=== PATIENT | male | born 1960 | race Caucasian/White ===

== ENCOUNTER 2022-02-07 07:26 | Emergency (ER) | payer OTHER, SELFPAY ==
--- NOTE | ~2022-02-07 | XR_ITS ---
EXAMINATION: XR foot LT min 3V DATE: 02/07/2022 08:00 INDICATION: Left foot dorsal pain and laceration. Fall. TECHNIQUE: 4 views of left foot were obtained. COMPARISON: Left ankle radiographs 10/03/2008 FINDINGS: Bone alignment is normal. No fracture. There is mild osteoarthritis of first metatarsophala ngeal joint and some of the interphalangeal joints. There is chronic heterotopic ossification distal to medial malleolus. There are enthesophytes at the posterior and plantar aspects of calcaneal tubero sity. IMPRESSION: 1. Mild polyarticular osteoarthritis. Reviewed, dictated and finalized at location A.
--- NOTE | ~2022-02-07 | XR_ITS ---
EXAMINATION: XR chest 1V DATE: 02/07/2022 08:00 INDICATION: Chest pain. Fall. TECHNIQUE: A single frontal view of the chest was obtained. COMPARISON: None. FINDINGS: The chest demonstrates clear lungs without pneumonia, pleural effusion, or pneumothorax. Th e heart size is normal. IMPRESSION: 1. No acute cardiopulmonary disease. Reviewed, dictated and finalized at location A.
--- NOTE | ~2022-02-07 | CT_ITS ---
EXAMINATION: CT brain wo con DATE: 02/07/2022 07:55 INDICATION: Head injury. Multiple sclerosis. TECHNIQUE: Computed tomography (CT) of the head was performed without intravenous contrast. The mA wa s adjusted according to patient size. Iterative reconstruction technique was employed. The dose-lengt h product was 605.33 mGy-cm. COMPARISON: None FINDINGS: There is no intracranial hemorrhage, acute infarction, or abnormal intracranial mass lesion . The ventricles are normal in size. The orbits are normal. There is mild mucosal thickening in the p aranasal sinuses. There is a left mastoid effusion. IMPRESSION: 1. Normal brain. Reviewed, dictated and finalized at location A. IMPRESSION: 1. Normal brain.
[2022-02-07 07:26] VITALS: BP 166/79; PULSE 77; RESP 16; TEMP 37; O2SAT 95
[2022-02-07 07:35] LABS: Glucose Point of Care 211 mg/dl (65-105)
--- NOTE | 2022-02-07 07:43 | ED.FALL ---
HPI - Fall General Chief Complaint: Fall Stated Complaint: fall Source: RN notes reviewed History of Present Illness HPI Narrative: Patient presents to emergency department from home via EMS for fall. Patient states he has multiple sclerosis and is in a wheelchair at all times he states that approximate hour ago he fell out of his wheelchair states his wheelchair has not been reclining appropriately and he has been getting a new wheelchair and his fell states that he bumped the left side of his forehead when he fell but does not believe he lost consciousness he denies any other trauma or injury he denies any vision changes, chest pain, shortness of breath, dull pain nausea vomiting or any other symptoms. Patient does have an abrasion over his left knee and left foot which she states are from previous injuries there is a new abrasion over the posterior heel Related Data Allergies Allergy/AdvReac Type Severity Reaction Status Date / Time No Known Allergies Allergy Mild Verified 02/07/22 07:33 Review of Systems Review of Systems: Gen.: Denies fevers or chills Eyes: Denies eye pain or visual change ENT: Denies congestion Respiratory: Denies shortness of breath CV: Denies chest pain GI: Denies abdominal pain nausea, emesis Musculoskeletal: Denies back pain or muscle pain Neuro: Reports MS with chronic leg weakness Skin: Denies rash Except as documented, all other systems reviewed and negative [facility] Past Medical History Medical History (Updated 02/07/22 @ 10:00 by Damaso Love DO) Multiple sclerosis Family History Family History (Updated 10/05/10 @ 08:59 by DOCTOR UNKNOWN) Other Diabetes mellitus Hypertension Social History Social History Smoking status: Never smoker Alcohol intake: current Exam Narrative: APPEARANCE: No acute distress, nontoxic, resting in bed EYES: EOMI, PERRL HEENT: Normocephalic, area of swelling over the left superior forehead nares patent no facial tenderness Neck: Supple no tenderness palpation for range of motion RESPIRATORY: No respiratory distress Clear to auscultation bilaterally with no rhonchi wheezing or rales. CARDIOVASCULAR: Regular rate and rhythm without murmurs rubs or gallops. Bilateral dorsalis pedis pulses 2+ ABDOMINAL: Soft, nontender, nondistended, no rebound or guarding MUSCULOSKELETAl: Moves all extremities. No clubbing, cyanosis or edema. NEURO: Awake and alert x 4. Following commands, speech normal, weakness bilateral lower extremities SKIN:: Warm, dry. Superficial abrasion over left posterior heel no active bleeding PSYCHIATRIC: Normal affect/mood, Course Course Emergency Course: Patient states his wheelchair at home has been broken currently was being sent to be fixed then he does not have any way of getting around at home while case management visit with patient Patient came to see patient they have been in discussion with with facility fixing wheelchair at this time wheelchair is expected to be fixed by this afternoon and patient may be able to go back home Discussed with patient results of workup and diagnosis. Discussed need for follow-up with primary care, proper use of medication, and reasons to return to the emergency department. Patient understands and agrees to current treatment plan Vital Signs Vital signs: Vital Signs Temperature 98.6 F 02/07/22 07:26 Pulse Rate 77 02/07/22 07:26 Respiratory Rate 16 02/07/22 07:26 Blood Pressure 166/79 H 02/07/22 07:26 Pulse Oximetry 95 02/07/22 07:26 Temperature 98.6 F 02/07/22 07:26 Pulse Rate 77 02/07/22 07:26 Respiratory Rate 16 02/07/22 07:26 Blood Pressure 166/79 H 02/07/22 07:26 Pulse Oximetry 95 02/07/22 07:26 MDM - Fall Lab Data Labs: Lab Results 02/07/22 Range/Units 07:32 POC Capillary Glucose 211 H (65-105) mg/dl Imaging Data Radiologist's impression: ITS Impressions He
[2022-02-07 09:00] VITALS: BP 156/72; PULSE 78; RESP 20; O2SAT 97
[2022-02-07 10:55] VITALS: BP 148/72; PULSE 76; RESP 20; O2SAT 97
--- NOTE | 2022-02-07 11:10 | PCCCNOTE ---
Late Entry: Called down to ER at 0840 to meet with patient about wheelchair. Met with patient and spouse Caitlin at bedside. Patient states that recliner of power wheelchair is broken and this AM he has a spasm with his MS that sent him falling out of wheelchair. With his power wheelchair he is able to transfer for toileting, but he does sleep in his chair. Attends [facility] for re[facility]. They already had a scheduled appointment today at 0900 to get it fixed. Discussed plan B like short stay at nursing rehab facility if unable to get wheelchair fixed. Patient does not want to do that. Currently his brother is en route to [facility] to have it fixed. Called to [facility] at [phone] sw Beatrice and advised if urgent repair as patient is discharging from the ER and has to have it. Beatrice to get a hold of Kevin and will call back. Beatrice called patient's back and they are trying to figure out if they can fix it today and/or get him a loaner. Caitlin (patient's spouse) called me, [facility] have made some adjustments that will work for now and the brother is on the way back with the wheelchair in the wheelchair van. Advised to notify MD and Medical team.
== END 2022-02-07 10:55 | disposition home or self-care (01) ==
PROVIDERS: Emergency Provider Emergency Medicine; PCP Internal Medicine
DX: S09.90XA Unspecified injury of head, initial encounter (principal); S00.83XA Contusion of other part of head, initial encounter; S90.812A Abrasion, left foot, initial encounter; G35 Multiple sclerosis; W05.0XXA Fall from non-moving wheelchair, initial encounter
CPT/HCPCS: 70450; 71045; 73630; 82948; 99284

== ENCOUNTER 2022-11-11 12:55 | Inpatient (IN) | payer OTHER, SELFPAY ==
[2022-11-11] VITALS (27 sets, daily range): BP systolic 115–156; BP diastolic 52–80; PULSE 68–99; RESP 12–27; TEMP 36.6; O2SAT 94–100; BMI 45.9
--- NOTE | ~2022-11-11 | XR_ITS ---
XR lumbar spine 2-3V 11/11/2022 13:29 Indication: Recent fall. Back pain. Procedure: 3 views of the lumbar spine Comparison: No prior studies for comparison. Findings: There is disc narrowing at L5-S1. Vertebral body heights are maintained. Pedicles intact. N o acute fracture or traumatic malalignment. There is a radiodensity overlying the lower pelvis of unc ertain significance. This may lie external to the patient. Clinically correlate. Impression: 1: No acute abnormality of the lumbar spine. 2: Radiopaque foreign body overlying the lower pelvis. Correlate clinically to determine if this is o utside of the patient. Reviewed, dictated and finalized at location A. YARD OPERATOR Impression: 1: No acute abnormality of the lumbar spine. 2: Radiopaque foreign body overlying the lower pelvis. Correlate clinically to determine if this is outside of the patient.
--- NOTE | ~2022-11-11 | XR_ITS ---
EXAM: XR hip BI 2V w AP pelvis DATE: 11/11/2022 18:55 HISTORY: Posterior bilateral hip/back pain x4days after fall. . COMPARISON: None available. FINDINGS: An electronic device projects over the midline pelvis Normal mineralization. No fracture o r dislocation. No lytic or blastic lesion. Degenerative changes in the lumbar spine. Mild bilateral h ip osteoarthritis. No erosion or periosteal change. Soft tissues within normal limits. IMPRESSION: No acute osseous finding in the pelvis or bilateral hips. Reviewed, dictated and finalized at location K. ILE SUPERVISOR
--- NOTE | ~2022-11-11 | XR_ITS ---
XR chest 1V 11/11/2022 13:29 Indication: Back pain. Status post fall. Procedure: AP view of the chest Comparison: 02/07/2022 Findings: There is bibasilar atelectasis. Shallow inspiration. No focal pneumonia, edema, significant effusion or pneumothorax. Elevated right diaphragm. Impression: 1: Bibasilar atelectasis. Reviewed, dictated and finalized at location A. GER RN Impression: 1: Bibasilar atelectasis.
--- NOTE | ~2022-11-11 | CT_ITS ---
EXAMINATION: CT brain wo con DATE: 11/11/2022 18:57 INDICATION: Confusion . TECHNIQUE: Computed tomography (CT) of the head was performed without intravenous contrast. The mA wa s adjusted according to patient size. Iterative reconstruction technique was employed. The dose-lengt h product was 681.00 mGy-cm. COMPARISON: 02/07/2022. FINDINGS: No acute intracranial hemorrhage or extra-axial fluid collection. No hydrocephalus, mass, or herniation. No acute ischemic infarct. Unremarkable dural venous sinus attenuation. No acute osseous abnormality. Anterior and middle ethmoid air cell mucosal thickening, bilateral mastoid effusions, the remaining a erated spaces are clear. IMPRESSION: No acute intracranial process. Reviewed, dictated and finalized at location K. OBIOLOGY DIRECTOR
--- NOTE | 2022-11-11 12:00 | ECG_ITS ---
Measurements Intervals [place] Rate: 81 P: 67 AK: 185 QRS: 47 QRSD: 90 T: 31 QT: 363 QTc: 423 Interpretive Statements SINUS RHYTHM BASELINE ARTIFACT- I, II, III, AVR, AVL, AVF, V1-V6 NORMAL ECG NO PREVIOUS ECG AVAILABLE FOR COMPARISON Electronically Signed On 11-11-2022 15:12:15 WAGE CONCILIATOR by Arun Samson D.O.
--- NOTE | 2022-11-11 12:39 | ED.BACK ---
HPI - Back Pain/Injury General Chief Complaint: Back Pain/Injury Stated Complaint: back pain, glf 4 days ago, covid+ 2 days ago Source: patient Mode of arrival: EMS History of Present Illness HPI Narrative: Patient lives with his , monitors chair bound, over the last 2 weeks have trouble with the manage to get out wheelchair to bathroom and vice versa. Had a fall out of his motorized chair 4 days ago, had COVID symptoms of 4 days ago, and tested positive at that day. Patient came by ambulance complaining of lower back pain which could be related to the fall 4 days ago. Patient reported that he felt off the motor chair forward on his face. Did not seek medical attention at that time. Patient's also have COVID and unable to manage to take care of him. Related Data Allergies Allergy/AdvReac Type Severity Reaction Status Date / Time No Known Allergies Allergy Verified 11/11/22 13:28 Review of Systems Review of Systems: All systems reviewed & are unremarkable except as noted in HPI and below PMFSH Past Medical History Medical History (Updated 11/11/22 @ 15:02 by Hanh Buck MD) Chronic renal failure, stage 3 (moderate) DM2 (diabetes mellitus, type 2) HTN (hypertension), malignant Hyperlipidemia Multiple sclerosis Surgical History Surgical History (Updated 11/11/22 @ 14:21 by Anum Gardner NP) H/O wrist surgery Family History Family History (Updated 11/11/22 @ 14:24 by Anum Gardner NP) Mother Diabetes mellitus Father Cerebrovascular accident Social History Social History 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 Musculoskeletal: Diffuse pain across the lumbar area, no bruises,, no swelling, no rash. Patient have difficulty to roll over or sit up in bed without 4 assistant professor of geography Neurologic: Alert and oriented ?3, LINE CREWMAN is normal as tested, no gross motor deficit Course Course Emergency Course: Back pain high likely secondary to the fall 4 days ago. Got worse after COVID infection. Patient been chronically weak over the last 2 weeks, unable to manage to get off his motorized chair without assistant professor of geography, lives with his who had COVID and unable even to help her self. The requested to keep patient in the hospital because unable to manage to take care of him. Work-up today showed no significant finding to explain patient weakness except COVID infection. Reevaluation(s) Reevaluation #1: Patient is improving, feeling much better compared to on arrival to the emergency room. Date: 11/11/22 Time: 15:02 Vital Signs Vital signs: Vital Signs Temperature 36.6 C 11/11/22 12:33 Pulse Rate 99 11/11/22 12:33 Respiratory Rate 18 11/11/22 12:33 Blood Pressure 115/52 L 11/11/22 12:33 Pulse Oximetry 98 11/11/22 12:33 Oxygen Delivery Room Air 11/11/22 12:33 Temperature 36.6 C 11/11/22 12:33 Pulse Rate 99 11/11/22 12:33 Respiratory Rate 18 11/11/22 12:33 Blood Pressure 115/52 L 11/11/22 12:33 Pulse Oximetry 98 11/11/22 12:33 Oxygen Delivery Room Air 11/11/22 12:33 MDM - Back Pain/Injury Differential Diagnosi
[2022-11-11] MEDS: SODIUM CHLORIDE 0.9% IV 1,000 ML 999 ML IV CONT (13:53)
[2022-11-11 14:00] LABS: Basophils Percent Auto 0.3 % (0.2-1.2); Eosinophils Absolute Auto 0.2 K/mm3 (0-0.3); Eosinophils Percent Auto 2.2 % (0-4.4); Hematocrit 49.2 % (42.0-52.0); Hemoglobin 15.9 g/dL (14.0-18.0); Immature Granulocyte Absolute 0.03 K/mm3 (0.00-0.031); Immature Granulocyte Percent A 0.4 % (0-0.5); Lymphocytes Absolute Auto 1.51 K/mm3 (0.9-3.2); Mean Corpuscular HGB Conc 32.3 g/dl (32-36); Mean Corpuscular Hemoglobin 33.4 pg (26-34); Mean Corpuscular Volume 103.4 fl (80-100); Mean Platelet Volume 11.6 fl (7.4-10.4); Monocytes Absolute Auto 1.3 K/mm3 (0.1-0.6); Monocytes Percent Auto 19.1 % (2.6-8.5); Neutrophils Absolute Auto 3.8 K/mm3 (1.3-6.7); Platelet Count Result 216 k/mm3 (150-375); Red Blood Count 4.76 M/mm3 (4.6-6.20); Red Cell Distribution Width 14.6 % (11.5-14.5); White Blood Count 6.9 K/mm3 (4.5-10.0)
[2022-11-11 14:01] LABS: Add Urine Microscopic? YES; Appearance Urine Clear (Clear); Bilirubin Urine Negative (Negative); Blood Urine 1+ (Negative); Color Urine Yellow (Yellow); Glucose Urine UA 3+ mg/dL (Negative); Ketones Urine Trace mg/dL (Negative); Leukocyte Esterase Ur Negative LEU/UL (Negative); Nitrate Urine Negative (Negative); Protein Urine 2+ mg/dL (Negative); Specific Grav Ur >= 1.030 (1.001-1.035); Urobilinogen Urine 0.2 mg/dL (<2.0); pH Urine 5.5 (5.0-9.0)
[2022-11-11 14:11] LABS: Alanine Aminotransferase 35 U/L (6-50); Alkaline Phosphatase 119 U/L (38-126); Anion Gap 14 mmol/L (8-16); Aspartate Amino Transferase 43 U/L (17-59); Bilirubin,Total 0.4 mg/dL (0.2-1.3); Blood Urea Nitrogen 46 mg/dL (9-20); Calcium 8.7 mg/dL (8.4-10.2); Carbon Dioxide 17 mmol/L (22-30); Chloride 101 mmol/L (98-107); Estimated CRCL calculation 49 ml/min; Estimated Glomerular Filt Rate 36; Glucose 168 mg/dL (65-110); Potassium 4.8 mmol/L (3.4-5.0); Sodium 132 mmol/L (137-145)
[2022-11-11 14:11] LABS: Mucus Urine Rare /lpf; WBC Urine 0-3 /hpf
--- NOTE | 2022-11-11 14:18 | PM.IMHP ---
H&P: HPI History of Present Illness Date/Time: 11/11/22 14:18 Chief Complaint: Back pain Narrative: This is a 62-year-old male patient who has a history MS. He is mostly wheelchair-bound. His was recently diagnosed with COVID and the patient has been having difficulty over the last 2 weeks managing getting out of his wheelchair to the bathroom. His COVID symptoms started approximately 4 days ago. Patient tested positive for COVID 4 days ago. The patient is having severe weakness and discomfort to his knees and back. The patient fell 4 days ago out of his wheelchair. He fell out of his motorized scooter and fell face forward. He did not seek any medical attention at that time. His is not able to take care of him at this point due to COVID. His creatinine is 1.9. The patient stated he does have chronic renal failure stage 3. His blood sugar is 168 today. Patient is negative for influenza a and B but is positive for COVID. The patient was given IV fluids, IV Tylenol and Decadron. Lumbar spine was read as no acute abnormality of the lumbar spine. Radial plate foreign body over of lying the lower pelvis. Chest x-ray was read as bibasilar atelectasis. The patient is being admitted to observation status on the date of service of 11/11/2022. Review of Systems Review of Systems: See HPI All systems reviewed & are unremarkable except as noted in HPI and below Constitutional: Constitutional: Reports as per HPI and Reports no additional constitutional complaints Eyes: Eyes: Reports as per HPI and Reports no additional eye complaints ENT: Reports system reviewed and no additional complaints, except as documented and Reports Normal hearing present Cardiovascular: Cardiovascular: Reports no additional cardiovascular complaints Respiratory: Respiratory: Reports no additional respiratory complaints and Reports no additional respiratory complaints Gastrointestinal: Gastrointestinal: Reports as per HPI and Reports no additional gastrointestinal complaints Musculoskeletal: Musculoskeletal: Reports no additional musculoskeletal complaints Integumentary/Breasts: Skin/Breast: Reports system reviewed and no additional complaints, except as docu and Reports as per HPI Neurologic: Reports system reviewed and no additional complaints, except as documented, Reports as per HPI and Reports Normal hearing present Psychiatric: Psychiatric: Reports no additional psychiatric complaints and Reports as per HPI Endocrine: Endocrine: Reports no additional endocrine complaints Hematologic/Lymphatic: Hematologic/Lymphatic: Reports no additional hematologic/lymphatic complaints Allergic/Immunologic: Allergic/Immunologic: Reports no additional allergic/immunologic complaints PMFSH Past Medical History Medical History (Updated 11/11/22 @ 15:02 by Hanh Buck MD) Chronic renal failure, stage 3 (moderate) DM2 (diabetes mellitus, type 2) HTN (hypertension), malignant Hyperlipidemia Multiple sclerosis Surgical History Surgical History (Updated 11/11/22 @ 14:21 by Anum Gardner NP) H/O wrist surgery Family History Family History (Updated 11/11/22 @ 14:24 by Anum Gardner NP) Mother Diabetes mellitus Father Cerebrovascular accident Social History Social History (Updated 11/11/22 @ 18:29 by Anum Gardner NP) Social History: He is disabled and lives with his and has adult 2 children. 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 He does not use any alcohol or marijuana. His is the durable power deputy county attorney for healthcare. Code status full code Smoking status: Never smoker Meds Home Medications and Allergies Allergies Allergy/AdvReac Type Severity Reaction Status Date / Time No Known Allergies Allergy Verified 11/11/22 13:28 Vital Signs Vital Signs - 24 hr 11/11/22 12:33 Temperature 36.6 C Pulse Rate 99 Respiratory Rate 18 Blood Pressure 115/52 L Pulse Oximetry 98
[2022-11-11 14:46] LABS: Influenza A QL RT-PCR Negative (Negative); Influenza B QL RT-PCR Negative (Negative); SARS-CoV-2 RNA PCR Positive
[2022-11-11] MEDS: SODIUM CHLORIDE 0.9% IV 1,000 ML 150 ML IV CONT ×2 (15:52→23:46)
[2022-11-11 19:12] LABS: Hemoglobin A1C 8.1 % (<5.7)
--- NOTE | 2022-11-11 23:36 | PHAR ---
PHARMACY VERIFIED HOME MEDICATION: *HOME MED* Nirmatrelvir-Ritonavir [Paxlovid (Eua)] 150/100 MG PACK TAKE ONE OF EACH TABLET BY MOUTH EVERY 12 HOURS
[2022-11-11] MEDS: BACLOFEN 10 MG TABLET PO (23:46)
[2022-11-12 00:03] LABS: Glucose Point of Care 236 mg/dl (65-105)
[2022-11-12 03:56] VITALS: BP 166/64; PULSE 80; RESP 20; TEMP 36.3; O2SAT 96
[2022-11-12 05:49] LABS: Basophils Percent Auto 0.3 % (0.2-1.2); Hematocrit 44.6 % (42.0-52.0); Hemoglobin 14.6 g/dL (14.0-18.0); Immature Granulocyte Absolute 0.03 K/mm3 (0.00-0.031); Immature Granulocyte Percent A 0.8 % (0-0.5); Lymphocytes Absolute Auto 0.68 K/mm3 (0.9-3.2); Lymphocytes Percent Auto 17.2 % (18.3-44.2); Mean Corpuscular HGB Conc 32.7 g/dl (32-36); Mean Corpuscular Hemoglobin 32.9 pg (26-34); Mean Corpuscular Volume 100.5 fl (80-100); Mean Platelet Volume 10.6 fl (7.4-10.4); Monocytes Absolute Auto 0.2 K/mm3 (0.1-0.6); Monocytes Percent Auto 4.3 % (2.6-8.5); Neutrophils Absolute Auto 3.1 K/mm3 (1.3-6.7); Neutrophils Percent Auto 77.4 % (45.5-73.1); Platelet Count Result 191 k/mm3 (150-375); Red Blood Count 4.44 M/mm3 (4.6-6.20); Red Cell Distribution Width 13.8 % (11.5-14.5)
[2022-11-12 05:54] LABS: Lactic Acid Reflex 1.3 mmol/L (0.7-2.0)
[2022-11-12 05:57] LABS: Anion Gap 14 mmol/L (8-16); Blood Urea Nitrogen 47 mg/dL (9-20); Carbon Dioxide 13 mmol/L (22-30); Chloride 104 mmol/L (98-107); Estimated CRCL calculation 51 ml/min; Estimated Glomerular Filt Rate 39; Glucose 251 mg/dL (65-110); Magnesium 1.9 mg/dL (1.6-2.3); Sodium 131 mmol/L (137-145)
[2022-11-12] MEDS: SODIUM CHLORIDE 0.9% IV 1,000 ML 150 ML IV CONT (06:02)
[2022-11-12 08:37] LABS: Glucose Point of Care 269 mg/dl (65-105)
[2022-11-12 09:45] VITALS: O2SAT 92
[2022-11-12] MEDS: buPROPion HCL XL (24 HR) 150 MG TABCR 300 MG PO (10:00)
[2022-11-12] MEDS: BACLOFEN 10 MG TABLET PO ×3 (10:00→17:33)
[2022-11-12] MEDS: ATORVASTATIN 10 MG TABLET PO (10:00)
[2022-11-12] MEDS: CHLORTHALIDONE 25 MG TABLET PO (10:01)
[2022-11-12] MEDS: SODIUM BICARBONATE TAB 650 MG TABLET PO (10:01)
[2022-11-12] MEDS: INSULIN ASPART (*BKC) 100 UNITS/ML 9 UNITS SUB-Q ×3 (10:34→17:36)
[2022-11-12] MEDS: EMPAGLIFLOZIN 10 MG TABLET PO (10:34)
[2022-11-12] MEDS: INSULIN ASPART (*BKC) 100 UNITS/ML SUB-Q ×3 (10:34→17:34)
[2022-11-12 10:42] LABS: Glucose Point of Care 273 mg/dl (65-105)
--- NOTE | 2022-11-12 11:13 | PM.CNNEP ---
Assessment and Plan Assessment and plan (1) Stage 3b chronic kidney disease: Code(s): N18.32 - Chronic kidney disease, stage 3b Status: Chronic Assessment and Plan: seems to run around 1.8 - 2.1mg/dl in the last year use to follow with Dr. Mendez (in [place]) and now with Dr. Yee (in [place]) etiology due to HTN, diabetes, and vascular disease (2) Metabolic acidosis: Code(s): E87.20 - Acidosis, unspecified Status: Acute Assessment and Plan: was not an issue prior to admission from review of records triggered by COVID(?) agree with starting sodium bicarbonate to compensate follow trend of CO2 levels (3) COVID-19 virus infection: Code(s): U07.1 - COVID-19 Status: Acute Assessment and Plan: currently on room air receiving steroids would hold remdesivir given his CKD continue supportive therapy (4) Hypertension: Code(s): I10 - Essential (primary) hypertension Status: Chronic Assessment and Plan: reasonable control for now would consider adding YASMEEN/ARB but this was discontinued previously due to issues with hyperkalemia follow trend of hemodynamics (5) DM2 (diabetes mellitus, type 2): Code(s): E11.9 - Type 2 diabetes mellitus without complications Status: Chronic Assessment and Plan: follow accuchecks glycemic control Will continue to follow. History of Present Illness Reason for Consult Consult date: 11/12/22 Reason for consult: chronic renal failure and metabolic acidosis Chief Complaint Chief complaint: General Weakness,Unable to Ambulate,COVID infect History of Present Illness Narrative: The patient is a 62-year-old male with a past medical history as outlined below who presented to [facility] Emergency Room due to severe weakness. At baseline, the patient is mostly wheelchair bound secondary to his known history of multiple sclerosis. Apparently, his was recently diagnosed with COVID and he subsequently started having symptoms about 4 days prior to his presentation to the ER. He subsequently tested positive for COVID-19 as well. Since this diagnosis it would seem that his generalized weakness is more severe than baseline in conjunction with discomfort in his knees and back. He apparently had a fall out of his wheelchair/motorized scooter where apparently fell face forward but did not seek medical attention at that time. Given his ongoing and declining weakness he was brought to the ER for further assessment as his has been unable to take care of him given her own COVID symptoms. Workup and evaluation emergency room demonstrated the patient to be hemodynamically stable and routine blood tests were significant for his known history of chronic kidney disease. He once again tested positive for COVID-19 as well. Given the constellation of symptoms as noted above he was started on Decadron as well as IV fluids and Tylenol with subsequent admission to the hospital for further evaluation therapy. Renal consultation was requested due to his known history of chronic kidney disease. The patient used to follow with Dr. Brittnee Mendez in [facility] for management of his chronic kidney disease and recently transferred his care to Dr. Yee in [place], [place] as Dr. Mendez is in the process of retiring. He has known chronic kidney disease secondary to his hypertension, diabetes, and vascular disease with his baseline creatinine fluctuating anywhere from 1.8-2.1 mg/dL in the last year. There has been some progression of his kidney disease since he was first diagnosed with chronic kidney disease but he remains on maximal therapy to maintain stability in his renal function. Currently, at the time my visit, his main complaint is still that of weakness but he is not appear to be in acute distress. Review of Systems Review of Systems: As per HPI. [facility] Past Medical History Medical
--- NOTE | 2022-11-12 11:16 | PM.IMPN ---
Progress Note: A&P Assessment and Plan (1) Hyponatremia: Code(s): E87.1 - Hypo-osmolality and hyponatremia Status: Acute (2) COVID-19 virus infection: Code(s): U07.1 - COVID-19 Status: Acute (3) Chronic renal failure, stage 3 (moderate): Code(s): N18.30 - Chronic kidney disease, stage 3 unspecified Status: Acute (4) HTN (hypertension), malignant: Code(s): I10 - Essential (primary) hypertension Status: Acute (5) DM2 (diabetes mellitus, type 2): Code(s): E11.9 - Type 2 diabetes mellitus without complications Status: Acute (6) Multiple sclerosis: Code(s): G35 - Multiple sclerosis Status: Acute Plan 62 years old M with PMH of MS, wheel chair bound presented with back pain, was diagnosed with COVID 19 5 days ago. 1)Acute COVID 19 Infection: Not in any distress On RA c/o Cough, add mucinex c/w dexamethasone to complete 10 day course d/c IV fluids 2)multiple Sclerosis: Increased weakness, likely in setting of COVID 19 PT/OT Await Neurology input CT head unremarkable 3)CKD stage 3+ Hyponatremia: D/c IV fluids Seems to be fluid overloaded Nephrology consult Also has metabolic acidosis, add sodium bicarbonate 4)Diabetes mellitus: Hyperglycemia+ 2/2 dexamethasone BG check TID AC and HS c/w SS meal time,add bolus mealtime insulin as well 5)HTN: c/w Chlothalidone, Atenolol Add PRN IV hydralazine 6)Physical Deconditioning: PT/OT 7)DVT ppx:Heparin SQ 8)Code:Full 9)Dispo:pending improvement Time Spent With Patient Time with patient: 25 - 35 minutes Subjective Date/time seen: 11/12/22 11:16 Interval history: No resp concerns,c/o cough, on RA. no acute events overnight Patient seems to be depressed Review of Systems Constitutional: Constitutional: Reports no additional constitutional complaints Eyes: Eyes: Reports no additional eye complaints ENT: Reports system reviewed and no additional complaints, except as documented Cardiovascular: Cardiovascular: Reports no additional cardiovascular complaints Respiratory: Respiratory: Reports cough Gastrointestinal: Gastrointestinal: Reports no additional gastrointestinal complaints Psychiatric: Psychiatric: Reports depression Exam Const: General: no acute distress HENMT: Mouth: Yes moist mucous membranes Eyes: Sclera: sclerae normal Neck: Neck: supple Resp: Auscultation: diminished lung sounds Other: decreased breath sounds B/L, no added sounds heard Cardio: Rate: regular rate Rhythm: regular rhythm GI: GI Palp: Yes Soft to palpation Auscultation: normal bowel sounds Extrem: General: edema Psych: Mental Status: mental status grossly normal Objective Data Vital Signs Vital Signs: Vital Signs - 24 hr 11/11/22 12:33 11/11/22 20:51 11/11/22 14:09 Temperature 97.8 F Pulse Rate 99 78 87 Respiratory Rate 18 18 21 H Blood Pressure 115/52 L Pulse Oximetry 98 97 100 Oxygen Delivery Room Air 11/11/22 14:15 11/11/22 14:40 11/11/22 14:45 Temperature Pulse Rate 85 81 88 Respiratory Rate 18 16 15 Blood Pressure Pulse Oximetry Oxygen Delivery 11/11/22 15:06 11/11/22 15:15 11/11/22 15:35 Temperature Pulse Rate 90 90 86 Respiratory Rate 13 16 21 H Blood Pressure Pulse Oximetry Oxygen Delivery 11/11/22 15:45 11/11/22 16:11 11/11/22 16:15 Temperature Pulse Rate 85 79 73 Respiratory Rate 27 H 21 H 20 Blood Pressure Pulse Oximetry Oxygen Delivery 11/11/22 16:56 11/11/22 17:00 11/11/22 17:15 Temperature Pulse Rate 69 74 91 Respiratory Rate 23 H 22 H 19 Blood Pressure Pulse Oximetry Oxygen Delivery 11/11/22 17:30 11/11/22 17:46 11/11/22 18:00 Temperature Pulse Rate 83 68 78 Respiratory Rate 22 H 14 Blood Pressure Pulse Oximetry Oxygen Delivery 11/11/22 18:37 11/11/22 18:45 11/11/22 19:02 Temperature Pulse Rate 82 78 85 Respiratory Rate 15
--- NOTE | 2022-11-12 11:48 | WPDNEURCNPN ---
Assessment and Plan Assessment and plan (1) COVID-19 virus infection: Code(s): U07.1 - COVID-19 Status: Acute (2) Chronic renal failure, stage 3 (moderate): Code(s): N18.30 - Chronic kidney disease, stage 3 unspecified Status: Acute (3) DM2 (diabetes mellitus, type 2): Code(s): E11.9 - Type 2 diabetes mellitus without complications Status: Acute (4) Multiple sclerosis: Code(s): G35 - Multiple sclerosis Status: Acute Plan 1. COVID acute 2 history of multiple sclerosis 3 diabetes mellitus chronic renal failure stage 3 planned at this stage is to continue treatment as such will discuss with him further Consult date: 11/12/22 HPI: Richard Gtz is a 62 year old male admitted to the hospital through the emergency room for the complaints of back pain. Reportedly he lives with his , over the last couple of weeks he had trouble with managing to get out of the his wheelchair to bathroom and has fallen out of his motorized chair 4 days ago in addition to the symptoms of COVID of 4 days ago as well for which she definitely tested positive he came to the emergency room by ambulance complaining of lower back pain he mentioned that he fell off the motor chair on his face but he did not seek medical attention initially his also has COVID positive and unable to manage in take care of him. He is not allergic to any medication he does have ongoing history of 1. Chronic renal failure 2. Type 2 diabetes mellitus 3. Hypertension and number for multiple sclerosis initial examination in the Emergency Room documented him to be with no significant motor deficit his vital signs were stable chest x-ray documented bibasilar atelectasis lumbar spine x-rays were not significant EKG was without atrial fibrillation and he was admitted to the hospital for further care Review of Systems Review of Systems: All systems reviewed & are unremarkable except as noted in HPI and below PMFSH Past Medical History Medical History (Updated 11/11/22 @ 15:02 by Hanh Buck MD) Chronic renal failure, stage 3 (moderate) DM2 (diabetes mellitus, type 2) HTN (hypertension), malignant Hyperlipidemia Multiple sclerosis Surgical History Surgical History (Updated 11/11/22 @ 14:21 by Anum Gardner NP) H/O wrist surgery Family History Family History (Updated 11/11/22 @ 14:24 by Anum Gardner NP) Mother Diabetes mellitus Father Cerebrovascular accident Social History Social History (Updated 11/11/22 @ 18:29 by Anum Gardner NP) Social History: He is disabled and lives with his and has adult 2 children. 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 He does not use any alcohol or marijuana. His is the durable power [employer] operator for healthcare. Code status full code Smoking status: Never smoker Second hand tobacco smoke exposure: No Alcohol intake: never Substance use: never Substance use type: does not use Lack of Transportation: No Lack of Food: Never True Current Housing: I Have Housing Concerned About Future Housing: No Difficulty Paying Gas/Electric Bills: No Difficulty Paying for Meds: No Currently Unemployed: No Education: Bachelor's Degree Difficulty w/ Childcare or Family Care: No Spiritual care concerns: No Meds Home Medications and Allergies Home Medications Medication Instructions Recorded Confirmed Type atenolol 50 mg tablet 50 mg PO HS 11/11/22 11/11/22 History atorvastatin 10 mg tablet 10 mg PO DAILY 11/11/22 11/11/22 History baclofen 10 mg tablet 10 - 20 mg PO TID 11/11/22 11/11/22 History bupropion HCl 300 mg 24 hr tablet, 300 mg PO DAILY 11/11/22 11/11/22 History extended release chlorthalidone 25 mg tablet 25 mg PO DAILY 11/11/22 11/11/22 History empagliflozin 10 mg tablet 10 mg PO DAILY 11/11/22 11/11/22 History (Jardiance) insulin aspart U-100 100 unit/mL See Rx Instructions .Route .COMPLEX 11/11/22
[2022-11-12 12:26] LABS: Glucose Point of Care 357 mg/dl (65-105)
[2022-11-12] MEDS: guaiFENesin 12 HR 600 MG TABCR 1200 MG PO ×2 (12:31→21:01)
[2022-11-12] MEDS: HEPARIN SODIUM 5,000 UNITS/ML VIAL 5000 UNITS SUB-Q ×2 (14:13→21:10)
[2022-11-12 16:52] VITALS: BP 136/67; PULSE 106; RESP 20; TEMP 36.7; O2SAT 95
[2022-11-12 17:25] LABS: Glucose Point of Care > 500 mg/dl (65-105)
[2022-11-12] MEDS: SODIUM BICARBONATE TAB 650 MG TABLET 1300 MG PO (17:33)
[2022-11-12 19:30] LABS: Glucose Point of Care 486 mg/dl (65-105)
[2022-11-12 21:01] VITALS: PULSE 106
[2022-11-12] MEDS: atenoloL 50 MG TABLET PO (21:01)
[2022-11-12] MEDS: INSULIN ASPART (*BKC) 100 UNITS/ML 15 UNITS SUB-Q (21:01)
[2022-11-12 21:02] VITALS: BP 143/74; PULSE 97; RESP 20; TEMP 36.6; O2SAT 95
[2022-11-12 23:51] LABS: Glucose Point of Care 400 mg/dl (65-105)
[2022-11-13] VITALS: BP 139/71; PULSE 67; RESP 18; TEMP 36.7; O2SAT 94
[2022-11-13] MEDS: INSULIN ASPART (*BKC) 100 UNITS/ML 20 UNITS SUB-Q (01:18)
[2022-11-13] MEDS: MELATONIN 5 MG TABLET PO (02:11)
[2022-11-13 03:44] LABS: Glucose Point of Care 343 mg/dl (65-105)
[2022-11-13 05:00] VITALS: BP 129/67; PULSE 64; RESP 20; TEMP 36.6; O2SAT 94
[2022-11-13 06:11] LABS: Basophils Percent Auto 0.2 % (0.2-1.2); Hematocrit 45.9 % (42.0-52.0); Hemoglobin 15.4 g/dL (14.0-18.0); Immature Granulocyte Absolute 0.03 K/mm3 (0.00-0.031); Immature Granulocyte Percent A 0.5 % (0-0.5); Lymphocytes Absolute Auto 0.79 K/mm3 (0.9-3.2); Mean Corpuscular HGB Conc 33.6 g/dl (32-36); Mean Corpuscular Hemoglobin 33.2 pg (26-34); Mean Corpuscular Volume 98.9 fl (80-100); Mean Platelet Volume 10.7 fl (7.4-10.4); Monocytes Absolute Auto 0.8 K/mm3 (0.1-0.6); Monocytes Percent Auto 14.7 % (2.6-8.5); Neutrophils Percent Auto 70.6 % (45.5-73.1); Platelet Count Result 224 k/mm3 (150-375); Red Blood Count 4.64 M/mm3 (4.6-6.20); Red Cell Distribution Width 13.5 % (11.5-14.5); White Blood Count 5.7 K/mm3 (4.5-10.0)
[2022-11-13] MEDS: HEPARIN SODIUM 5,000 UNITS/ML VIAL 5000 UNITS SUB-Q ×3 (06:35→21:33)
[2022-11-13 06:40] LABS: Anion Gap 12 mmol/L (8-16); Blood Urea Nitrogen 61 mg/dL (9-20); Calcium 8.9 mg/dL (8.4-10.2); Carbon Dioxide 18 mmol/L (22-30); Chloride 105 mmol/L (98-107); Estimated CRCL calculation 49 ml/min; Estimated Glomerular Filt Rate 36; Glucose 292 mg/dL (65-110); Potassium 4.3 mmol/L (3.4-5.0); Sodium 135 mmol/L (137-145)
[2022-11-13 08:49] LABS: Glucose Point of Care 309 mg/dl (65-105)
[2022-11-13] MEDS: guaiFENesin 12 HR 600 MG TABCR 1200 MG PO ×2 (09:17→21:31)
[2022-11-13] MEDS: CHLORTHALIDONE 25 MG TABLET PO (09:17)
[2022-11-13] MEDS: BACLOFEN 10 MG TABLET PO ×3 (09:17→17:27)
[2022-11-13] MEDS: SODIUM BICARBONATE TAB 650 MG TABLET 1300 MG PO ×2 (09:18→17:27)
[2022-11-13] MEDS: EMPAGLIFLOZIN 10 MG TABLET PO (09:18)
[2022-11-13] MEDS: ATORVASTATIN 10 MG TABLET PO (09:18)
[2022-11-13] MEDS: buPROPion HCL XL (24 HR) 150 MG TABCR 300 MG PO (09:18)
[2022-11-13] MEDS: INSULIN ASPART (*BKC) 100 UNITS/ML 9 UNITS SUB-Q ×3 (09:25→17:27)
[2022-11-13] MEDS: INSULIN ASPART (*BKC) 100 UNITS/ML SUB-Q ×3 (09:26→17:28)
--- NOTE | 2022-11-13 09:53 | PM.PNNEP ---
Progress Note: A&P Assessment and Plan (1) Stage 3b chronic kidney disease: Code(s): N18.32 - Chronic kidney disease, stage 3b Status: Chronic Assessment and Plan: seems to run around 1.8 - 2.1mg/dl in the last year use to follow with Dr. Mendez (in [place]) and now with Dr. Yee (in [place]) etiology due to HTN, diabetes, and vascular disease (2) Metabolic acidosis: Code(s): E87.20 - Acidosis, unspecified Status: Acute Assessment and Plan: was not an issue prior to admission from review of records triggered by COVID(?) on sodium bicarbonate to compensate follow trend of CO2 levels (3) COVID-19 virus infection: Code(s): U07.1 - COVID-19 Status: Acute Assessment and Plan: currently on room air receiving steroids would hold remdesivir given his CKD continue supportive therapy (4) Hypertension: Code(s): I10 - Essential (primary) hypertension Status: Chronic Assessment and Plan: reasonable control for now would consider adding YASMEEN/ARB but this was discontinued previously due to issues with hyperkalemia follow trend of hemodynamics (5) DM2 (diabetes mellitus, type 2): Code(s): E11.9 - Type 2 diabetes mellitus without complications Status: Chronic Assessment and Plan: follow accuchecks glycemic control Will continue to follow. Subjective Date/time seen: 11/13/22 09:53 Appears to be doing reasonably well; respiratory status/breathing remains stable; still with some mild weakness but no worse; kidney function remains stable and improvement noted in acidosis with addition of sodium bicarbonate; no apparent distress noted. Exam Narrative: General: WD/WN male in NAD Heart: normal S1 and S2; no rub Lungs: clear to auscultation Abdomen: soft, nontender, nondistended, positive bowel sounds Extremities: no cyanosis or clubbing; no edema Skin: warm and dry Objective Data Vital Signs Vital Signs: Vital Signs Temp Pulse Resp BP Pulse Ox O2 Del Method 11/13/22 05:00 97.9 F 64 20 129/67 94 11/13/22 00:00 98.0 F 67 18 139/71 94 11/12/22 21:00 Room Air 11/12/22 21:02 97.9 F 97 20 143/74 H 95 11/12/22 21:01 106 H 11/12/22 16:52 98.1 F 106 H 20 136/67 95 11/12/22 14:51 Room Air Intake/Output Intake/Output: Intake & Output 11/10/22 11/11/22 11/12/22 11/13/22 23:59 23:59 23:59 23:59 Intake Total 2100 3808 450 Output Total 3600 3000 Balance 2100 208 -2550 Meds/Results Medications: Active Medications Generic Name Dose Route Start Last Admin Trade Name Freq PRN Reason Stop Dose Admin Acetaminophen 650 mg 11/11/22 15:03 Acetaminophen 325 Mg Tablet PO Q4H PRN Mild Pain (1-3) or Fever Atenolol 50 mg 11/12/22 21:00 11/12/22 21:01 Atenolol 50 Mg Tablet PO 50 mg HS CHINO Administration Atorvastatin Calcium 10 mg 11/12/22 09:00 11/13/22 09:18 Atorvastatin 10 Mg Tablet PO 10 mg DAILY CHINO Administration Baclofen 10 mg 11/11/22 22:55 11/13/22 09:17 Baclofen 10 Mg Tablet PO 10 mg TID CHINO Administration Bupropion HCl 300 mg 11/12/22 09:00 11/13/22 09:18 Bupropion Hcl Xl (24 Hr) 150 Mg Tabcr PO 300 mg DAILY CHINO Administration Chlorthalidone 25 mg 11/12/22 09:00 11/13/22 09:17 Chlorthalidone 25 Mg Tablet PO 25 mg DAILY CHINO Administration Dexamethasone Sodium Phosphate 6 mg 11/12/22 09:00 11/13/22 09:19 Dexamethasone Sod Phos Inj 10 Mg/Ml 1 Ml Vial IV PUSH 11/21/22 09:01 6 mg DAILY CHINO Administration Dextrose 12.5 gm 11/11/22 18:47 Dextrose 50% 25 Gm/50 Ml Syringe IV PUSH PRN PRN Hypoglycemia Protocol Emollient Ointment 1 applic 11/12/22 09:16 Petrolatum Oint 30 Gm Tube TOPICAL Q4H PRN Dry nasal cavity Empagliflozin 10 mg 11/12/22 09:00 11/13/22 09:18 Empagliflozin 10 Mg Tablet PO 10 mg DAILY CHINO A
[2022-11-13 12:30] LABS: Glucose Point of Care 361 mg/dl (65-105)
[2022-11-13 14:00] VITALS: BP 153/75; PULSE 68; RESP 18; TEMP 36.7; O2SAT 95
[2022-11-13 17:10] LABS: Glucose Point of Care 362 mg/dl (65-105)
--- NOTE | 2022-11-13 17:15 | PM.IMPN ---
Progress Note: A&P Assessment and Plan (1) Hyponatremia: Code(s): E87.1 - Hypo-osmolality and hyponatremia Status: Acute (2) COVID-19 virus infection: Code(s): U07.1 - COVID-19 Status: Acute (3) Chronic renal failure, stage 3 (moderate): Code(s): N18.30 - Chronic kidney disease, stage 3 unspecified Status: Acute (4) HTN (hypertension), malignant: Code(s): I10 - Essential (primary) hypertension Status: Acute (5) DM2 (diabetes mellitus, type 2): Code(s): E11.9 - Type 2 diabetes mellitus without complications Status: Chronic (6) Multiple sclerosis: Code(s): G35 - Multiple sclerosis Status: Acute Plan 1)Acute COVID 19 Infection: Not in any distress On RA c/o Cough, add mucinex c/w dexamethasone to complete 10 day course medically better awaiting placement 2)multiple Sclerosis: Increased weakness, likely in setting of COVID 19 PT/OT Await Neurology input CT head unremarkable 3)CKD stage 3+ Hyponatremia: nephrology rounding sodium is 135 4)Diabetes mellitus: Hyperglycemia+ 2/2 dexamethasone BG check TID AC and HS c/w SS meal time,add bolus mealtime insulin as well 5)HTN: c/w Chlothalidone, Atenolol Add PRN IV hydralazine 6)Physical Deconditioning: PT/OT Awaiting placement Subjective Date/time seen: 11/13/22 17:15 Interval history: Pt appears better admitted with COVID No breathing problems no fever or cough not on oxygen. 62-year-old male patient who has a history MS.? He is mostly wheelchair-bound. requesting to go to [facility] awaiting placement. Review of Systems Review of Systems: weakness no cough or sob All systems reviewed & are unremarkable except as noted in HPI and below Exam Chest: Chest palpation & inspection: normal inspection of the chest Resp: Effort & Inspection: normal respiratory effort Auscultation: clear to auscultation bilaterally and diminished lung sounds Other: decreased breath sounds B/L, no added sounds heard Cardio: Palpation: normal PMI Rate: regular rate Rhythm: regular rhythm Heart sounds: S1 normal heart sound present and S2 normal heart sound present Peripheral pulses: Peripheral pulses 2+ throughout GI: Inspection: normal to inspection Auscultation: normal bowel sounds Rectal Exam: deferred Skin: General skin exam: normal color Lesions: no lesions Rashes: no rashes Trauma: no lacerations or abrasions Wounds: no wounds Hair: male pattern alopecia Nails: normal Neuro: General: oriented to person and oriented to place Cranial nerves: Yes Equal, round and reactive pupils present and Yes Normal hearing present Cognition (Neuro): abnormal cognition (Word searching) Speech: dysarthria Sensory Exam: normal sensation Other: The patient has generalized weakness and is having difficulty raising his feet off the bed. Objective Data Vital Signs Vital Signs: Vital Signs - 24 hr 11/12/22 21:01 11/12/22 21:02 11/12/22 21:00 Temperature 36.6 C Pulse Rate 106 H 97 Respiratory Rate 20 Blood Pressure 143/74 H Pulse Oximetry 95 Oxygen Delivery Room Air 11/13/22 00:00 11/13/22 05:00 11/13/22 09:20 Temperature 36.7 C 36.6 C Pulse Rate 67 64 Respiratory Rate 18 20 Blood Pressure 139/71 129/67 Pulse Oximetry 94 94 Oxygen Delivery Room Air 11/13/22 14:00 Temperature 36.7 C Pulse Rate 68 Respiratory Rate 18 Blood Pressure 153/75 H Pulse Oximetry 95 Oxygen Delivery Intake/Output Intake/Output: Intake & Output 11/10/22 11/11/22 11/12/22 11/13/22 23:59 23:59 23:59 23:59 Intake Total 2100 3808 690 Output Total 3600 3000 Balance 2100 208 -2310 Meds/Results Medications: Active Medications Generic Name Dose Route Start Last Admin Trade Name Keenanq PRN Reason Stop Dose Admin Acetaminophen 650 mg 11/11/22 15:03 Acetaminophen 325 Mg Tablet PO Q4H PRN Mild Pain (1-3) or Fever Atenolol 50 mg 11/12/22
[2022-11-13 21:31] VITALS: PULSE 72
[2022-11-13] MEDS: atenoloL 50 MG TABLET PO (21:31)
[2022-11-13 21:39] LABS: Glucose Point of Care 452 mg/dl (65-105)
[2022-11-13 22:15] VITALS: BP 163/73; PULSE 72; RESP 16; TEMP 36.6; O2SAT 94
[2022-11-13] MEDS: INSULIN ASPART (*BKC) 100 UNITS/ML 15 UNITS SUB-Q (22:23)
[2022-11-14 00:20] LABS: Glucose Point of Care 339 mg/dl (65-105)
[2022-11-14] MEDS: INSULIN ASPART (*BKC) 100 UNITS/ML SUB-Q ×4 (02:01→17:38)
[2022-11-14 06:00] VITALS: BP 160/63; PULSE 58; RESP 16; TEMP 36.6; O2SAT 93
[2022-11-14] MEDS: HEPARIN SODIUM 5,000 UNITS/ML VIAL 5000 UNITS SUB-Q ×3 (06:01→21:01)
[2022-11-14 08:02] LABS: Anion Gap 12 mmol/L (8-16); Blood Urea Nitrogen 65 mg/dL (9-20); Calcium 8.9 mg/dL (8.4-10.2); Carbon Dioxide 17 mmol/L (22-30); Chloride 105 mmol/L (98-107); Estimated CRCL calculation 54 ml/min; Estimated Glomerular Filt Rate 41; Glucose 324 mg/dL (65-110); Potassium 4.6 mmol/L (3.4-5.0); Sodium 134 mmol/L (137-145)
[2022-11-14 08:29] LABS: Glucose Point of Care 342 mg/dl (65-105)
[2022-11-14] MEDS: INSULIN ASPART (*BKC) 100 UNITS/ML 9 UNITS SUB-Q ×3 (09:56→17:38)
[2022-11-14] MEDS: guaiFENesin 12 HR 600 MG TABCR 1200 MG PO ×2 (09:57→21:03)
[2022-11-14] MEDS: SODIUM BICARBONATE TAB 650 MG TABLET 1300 MG PO ×2 (09:58→17:37)
[2022-11-14] MEDS: EMPAGLIFLOZIN 10 MG TABLET PO (09:58)
[2022-11-14] MEDS: buPROPion HCL XL (24 HR) 150 MG TABCR 300 MG PO (09:58)
[2022-11-14] MEDS: CHLORTHALIDONE 25 MG TABLET PO (09:58)
[2022-11-14] MEDS: BACLOFEN 10 MG TABLET PO ×3 (09:59→17:37)
[2022-11-14] MEDS: ATORVASTATIN 10 MG TABLET PO (09:59)
--- NOTE | 2022-11-14 11:26 | PM.DS ---
DS: Admitting Diagnosis Discharge Date 11/14/22 Admitting Diagnosis Weakness DS: Discharge Diagnosis Discharge Diagnosis (1) Hyponatremia: Code(s): E87.1 - Hypo-osmolality and hyponatremia Status: Acute (2) COVID-19 virus infection: Code(s): U07.1 - COVID-19 Status: Acute (3) Chronic renal failure, stage 3 (moderate): Code(s): N18.30 - Chronic kidney disease, stage 3 unspecified Status: Acute (4) HTN (hypertension), malignant: Code(s): I10 - Essential (primary) hypertension Status: Acute (5) DM2 (diabetes mellitus, type 2): Code(s): E11.9 - Type 2 diabetes mellitus without complications Status: Chronic (6) Multiple sclerosis: Code(s): G35 - Multiple sclerosis Status: Acute DS: Summary Hospital Course Hospital Course: 62-year-old male patient who has a history MS, wheelchair-bound, has been having difficulty over the last 2 weeks managing getting out of his wheelchair to the bathroom.? His COVID symptoms started approximately 4 days ago.? Patient tested positive for COVID 4 days ago.? The patient is having severe weakness and discomfort to his knees and back.? The patient fell 4 days ago out of his wheelchair.? He fell out of his motorized scooter and fell face forward.? He did not seek any medical attention at that time.? His is not able to take care of him at this point due to COVID.? His creatinine is 1.9.? The patient stated he does have chronic renal failure stage 3.? His blood sugar is 168 today.? Patient is negative for influenza a and B but is positive for COVID.? The patient was given IV fluids, IV Tylenol and Decadron.? Nephrology was consulted and thought patient's kidney function was actually near baseline. Neurology was consulted and recommended further care of his MS as an outpatient. Weakness was thought to be secondary to COVID exacerbated by baseline low functioning status secondary to MS. He remains stable on room air, started on Decadron to complete a 10 day course. Patient was discharged to SNF. Repeat CMP ordered in 1 week to follow up sodium and creatinine. Time Spent with Patient Time attestation: Total time spent providing and/or coordinating discharge services: Exam Chest: Chest palpation & inspection: normal inspection of the chest Resp: Effort & Inspection: normal respiratory effort Auscultation: clear to auscultation bilaterally and diminished lung sounds Other: decreased breath sounds B/L, no added sounds heard Cardio: Palpation: normal PMI Rate: regular rate Rhythm: regular rhythm Heart sounds: S1 normal heart sound present and S2 normal heart sound present Peripheral pulses: Peripheral pulses 2+ throughout GI: Inspection: normal to inspection Auscultation: normal bowel sounds Rectal Exam: deferred Skin: General skin exam: normal color Lesions: no lesions Rashes: no rashes Trauma: no lacerations or abrasions Wounds: no wounds Hair: male pattern alopecia Nails: normal Neuro: General: oriented to person and oriented to place Cranial nerves: Yes Equal, round and reactive pupils present and Yes Normal hearing present Cognition (Neuro): abnormal cognition (Word searching) Speech: dysarthria Sensory Exam: normal sensation Other: The patient has generalized weakness and is having difficulty raising his feet off the bed. DS: Data Data Completed and Pending Labs on day of discharge: Labs from last 24 hours 11/14/22 11/14/22 11/14/22 08:26 07:44 00:15 Sodium 134 L Potassium 4.6 Chloride 105 Carbon Dioxide 17 L Anion Gap 12 BUN 65 H Creatinine 1.70 H Estim Creat Clear Calc 54 Estimated GFR 41 L Glucose 324 H POC Capillary Glucose 342 H 339 H Calcium 8.9 11/13/22 11/13/22 11/13/22 21:27 17:08 12:27 Sodium Potassium Chloride Carbon Dioxide Anion Gap BUN Creatinine Estim Creat Clear Calc Estimated GFR Glucose PO
--- NOTE | 2022-11-14 12:01 | P.PNNP_ITS ---
Progress Note: A&P Assessment and Plan (1) Stage 3b chronic kidney disease: Code(s): N18.32 - Chronic kidney disease, stage 3b Status: Chronic Assessment and Plan: * seems to run around 1.8 - 2.1mg/dl in the last year * use to follow with Dr. Mendez (in [place]) but now follows with Dr. Yee (in [place]) * etiology due to HTN, diabetes, and vascular disease (2) Metabolic acidosis: Code(s): E87.20 - Acidosis, unspecified Status: Acute Assessment and Plan: * was not an issue prior to admission from review of records * triggered by COVID(?) * on sodium bicarbonate to compensate * follow trend of CO2 levels (3) COVID-19 virus infection: Code(s): U07.1 - COVID-19 Status: Acute Assessment and Plan: * currently on room air * receiving steroids * would hold remdesivir given his CKD * continue supportive therapy (4) Hypertension: Code(s): I10 - Essential (primary) hypertension Status: Chronic Assessment and Plan: * reasonable control for now * would consider adding YASMEEN/ARB but this was discontinued previously due to issues with hyperkalemia * follow trend of hemodynamics (5) DM2 (diabetes mellitus, type 2): Code(s): E11.9 - Type 2 diabetes mellitus without complications Status: Chronic Assessment and Plan: * follow accuchecks * glycemic control Not much else to really add -- will continue to follow from a distance. Subjective Date/time seen: 11/14/22 12:01 Continue to do reasonably well at this time; renal function stable if not better than baseline by recent labs; no apparent distress voiced; no other issues/even ts noted overnight or earlier this AM. Exam Narrative: General: WD/WN male in NAD Heart: normal S1 and S2; no rub Lungs: clear to auscultation Abdomen: soft, nontender, nondistended, positive bowel sounds Extremities: no cyanosis or clubbing; no edema Skin: warm and intact Objective Data Vital Signs Vital Signs: Vital Signs Temp Pulse Resp BP Pulse Ox O2 Del Method 11/14/22 12:00 97.2 F L 60 18 150/87 H 94 11/14/22 10:00 Room Air 11/14/22 06:00 97.8 F 58 L 16 160/63 H 93 11/13/22 22:15 97.8 F 72 16 163/73 H 94 11/13/22 21:31 72 Intake/Output Intake/Output: Intake & Output 11/11/22 11/12/22 11/13/22 11/14/22 23:59 23:59 23:59 23:59 Intake Total 2100 3808 1430 120 Output Total 3600 4650 1800 Balance 2100 068 -0737 -4160 Meds/Results Medications: Active Medications Generic Name Dose Route Start Last Admin Trade Name Freq PRN Reason Stop Dose Admin Acetaminophen 650 mg 11/11/22 15:03 Acetaminophen 325 Mg Tablet PO Q4H PRN Mild Pain (1-3) or Fever Atenolol 50 mg 11/12/22 21:00 11/13/22 21:31 Atenolol 50 Mg Tablet PO 50 mg HS CHINO Administration Atorvastatin Calcium 10 mg 11/12/22 09:00 11/14/22 09:59 Atorvastatin 10 Mg Tablet PO 10 mg DAILY CHINO Administration Baclofen 10 mg 11/11/22 22:55 11/14/22 12:21 Baclofen 10 Mg Tablet PO 10 mg TID CHINO Administration Bupropion HCl 300 mg 11/12
--- NOTE | 2022-11-14 12:01 | PM.PNNEP ---
Progress Note: A&P Assessment and Plan (1) Stage 3b chronic kidney disease: Code(s): N18.32 - Chronic kidney disease, stage 3b Status: Chronic Assessment and Plan: seems to run around 1.8 - 2.1mg/dl in the last year use to follow with Dr. Mendez (in [place]) but now follows with Dr. Yee (in [place]) etiology due to HTN, diabetes, and vascular disease (2) Metabolic acidosis: Code(s): E87.20 - Acidosis, unspecified Status: Acute Assessment and Plan: was not an issue prior to admission from review of records triggered by COVID(?) on sodium bicarbonate to compensate follow trend of CO2 levels (3) COVID-19 virus infection: Code(s): U07.1 - COVID-19 Status: Acute Assessment and Plan: currently on room air receiving steroids would hold remdesivir given his CKD continue supportive therapy (4) Hypertension: Code(s): I10 - Essential (primary) hypertension Status: Chronic Assessment and Plan: reasonable control for now would consider adding YASMEEN/ARB but this was discontinued previously due to issues with hyperkalemia follow trend of hemodynamics (5) DM2 (diabetes mellitus, type 2): Code(s): E11.9 - Type 2 diabetes mellitus without complications Status: Chronic Assessment and Plan: follow accuchecks glycemic control Not much else to really add -- will continue to follow from a distance. Subjective Date/time seen: 11/14/22 12:01 Continue to do reasonably well at this time; renal function stable if not better than baseline by recent labs; no apparent distress voiced; no other issues/events noted overnight or earlier this AM. Exam Narrative: General: WD/WN male in NAD Heart: normal S1 and S2; no rub Lungs: clear to auscultation Abdomen: soft, nontender, nondistended, positive bowel sounds Extremities: no cyanosis or clubbing; no edema Skin: warm and intact Objective Data Vital Signs Vital Signs: Vital Signs Temp Pulse Resp BP Pulse Ox O2 Del Method 11/14/22 12:00 97.2 F L 60 18 150/87 H 94 11/14/22 10:00 Room Air 11/14/22 06:00 97.8 F 58 L 16 160/63 H 93 11/13/22 22:15 97.8 F 72 16 163/73 H 94 11/13/22 21:31 72 Intake/Output Intake/Output: Intake & Output 11/11/22 11/12/22 11/13/22 11/14/22 23:59 23:59 23:59 23:59 Intake Total 2100 3808 1430 120 Output Total 3600 4650 1800 Balance 2100 040 -6090 -0063 Meds/Results Medications: Active Medications Generic Name Dose Route Start Last Admin Trade Name Freq PRN Reason Stop Dose Admin Acetaminophen 650 mg 11/11/22 15:03 Acetaminophen 325 Mg Tablet PO Q4H PRN Mild Pain (1-3) or Fever Atenolol 50 mg 11/12/22 21:00 11/13/22 21:31 Atenolol 50 Mg Tablet PO 50 mg HS CHINO Administration Atorvastatin Calcium 10 mg 11/12/22 09:00 11/14/22 09:59 Atorvastatin 10 Mg Tablet PO 10 mg DAILY CHINO Administration Baclofen 10 mg 11/11/22 22:55 11/14/22 12:21 Baclofen 10 Mg Tablet PO 10 mg TID CHINO Administration Bupropion HCl 300 mg 11/12/22 09:00 11/14/22 09:58 Bupropion Hcl Xl (24 Hr) 150 Mg Tabcr PO 300 mg DAILY CHINO Administration Chlorthalidone 25 mg 11/12/22 09:00 11/14/22 09:58 Chlorthalidone 25 Mg Tablet PO 25 mg DAILY CHINO Administration Dexamethasone Sodium Phosphate 6 mg 11/12/22 09:00 11/14/22 09:57 Dexamethasone Sod Phos Inj 10 Mg/Ml 1 Ml Vial IV PUSH 11/21/22 09:01 6 mg DAILY CHINO Administration Dextrose 12.5 gm 11/11/22 18:47 Dextrose 50% 25 Gm/50 Ml Syringe IV PUSH PRN PRN Hypoglycemia Protocol Emollient Ointment 1 applic 11/12/22 09:16 Petrolatum Oint 30 Gm Tube TOPICAL Q4H PRN Dry nasal cavity Empagliflozin 10 mg 11/12/22 09:00 11/14/22 09:58 Empagliflozin 10 Mg Tablet PO 10 mg DAILY CHINO Administration Glucagon 1 mg 11/11/22 18:47 Glucagon For I
[2022-11-14 12:02] LABS: Glucose Point of Care 339 mg/dl (65-105)
--- NOTE | 2022-11-14 13:34 | PM.IMPN ---
Progress Note: A&P Assessment and Plan (1) Hyponatremia: Code(s): E87.1 - Hypo-osmolality and hyponatremia Status: Acute Assessment and Plan: Nephrology was consulted, kidney function essentially resolving, sodium improving (2) COVID-19 virus infection: Code(s): U07.1 - COVID-19 Status: Acute Assessment and Plan: Stable on room air, continue dexamethasone to complete a 10 day course (3) Chronic renal failure, stage 3 (moderate): Code(s): N18.30 - Chronic kidney disease, stage 3 unspecified Status: Acute Assessment and Plan: Appreciate nephrology consultation (4) HTN (hypertension), malignant: Code(s): I10 - Essential (primary) hypertension Status: Acute Assessment and Plan: Stable, somewhat elevated, will defer further antihypertensive management to Nephrology on an outpatient basis (5) DM2 (diabetes mellitus, type 2): Code(s): E11.9 - Type 2 diabetes mellitus without complications Status: Chronic Assessment and Plan: Uncontrolled, on dexamethasone A1c 8.1 Will start Lantus 20 units tonight (6) Multiple sclerosis: Code(s): G35 - Multiple sclerosis Status: Acute Assessment and Plan: Appreciate neurology consultation, follow-up outpatient Plan DVT prophylaxis with heparin GI prophylaxis not indicated Code status full code Subjective Date/time seen: 11/14/22 13:34 Interval history: No overnight events noted. No chest pain or shortness of breath. No nausea, vomiting or diarrhea. No fevers or chills. Review of Systems Review of Systems: 12 point review of systems was assessed and was negative except as noted in the HPI Exam Narrative: General: No acute distress, alert and oriented per baseline HEENT: Atraumatic, normocephalic, mucous membranes moist CV: Regular rate and rhythm, S1, S2 Lungs: Clear to auscultation bilaterally, no rales or crackles noted, no wheezes, good air entry Abdomen: Soft, nontender, nondistended Extremities: Normal to inspection Skin: No rashes noted, no lesions or wounds seen Psych: Euthymic, normal affect Objective Data Vital Signs Vital Signs: Vital Signs - 24 hr 11/13/22 14:00 11/13/22 21:31 11/13/22 22:15 Temperature 98.0 F 97.8 F Pulse Rate 68 72 72 Respiratory Rate 18 16 Blood Pressure 153/75 H 163/73 H Pulse Oximetry 95 94 Oxygen Delivery 11/14/22 06:00 11/14/22 10:00 Temperature 97.8 F Pulse Rate 58 L Respiratory Rate 16 Blood Pressure 160/63 H Pulse Oximetry 93 Oxygen Delivery Room Air Intake/Output Intake/Output: Intake & Output 11/11/22 11/12/22 11/13/22 11/14/22 23:59 23:59 23:59 23:59 Intake Total 2100 3808 1430 120 Output Total 3600 4650 1800 Balance 2100 208 3220 -1680 Meds/Results Medications: Active Medications Generic Name Dose Route Start Last Admin Trade Name Freq PRN Reason Stop Dose Admin Acetaminophen 650 mg 11/11/22 15:03 Acetaminophen 325 Mg Tablet PO Q4H PRN Mild Pain (1-3) or Fever Atenolol 50 mg 11/12/22 21:00 11/13/22 21:31 Atenolol 50 Mg Tablet PO 50 mg HS CHINO Administration Atorvastatin Calcium 10 mg 11/12/22 09:00 11/14/22 09:59 Atorvastatin 10 Mg Tablet PO 10 mg DAILY CHINO Administration Baclofen 10 mg 11/11/22 22:55 11/14/22 12:21 Baclofen 10 Mg Tablet PO 10 mg TID CHINO Administration Bupropion HCl 300 mg 11/12/22 09:00 11/14/22 09:58 Bupropion Hcl Xl (24 Hr) 150 Mg Tabcr PO 300 mg DAILY CHINO Administration Chlorthalidone 25 mg 11/12/22 09:00 11/14/22 09:58 Chlorthalidone 25 Mg Tablet PO 25 mg DAILY CHINO Administration Dexamethasone Sodium Phosphate 6 mg 11/12/22 09:00 11/14/22 09:57 Dexamethasone Sod Phos Inj 10 Mg/Ml 1 Ml Vial IV PUSH 11/21/22 09:01 6 mg DAILY CHINO Administration Dextrose 12.5 gm 11/11/22 18:47 Dextrose 50% 25 Gm/50 Ml Syringe IV PUSH PRN PRN Hypoglyce
[2022-11-14 14:00] VITALS: BP 150/87; PULSE 60; RESP 18; TEMP 36.2; O2SAT 94
[2022-11-14 17:04] LABS: Glucose Point of Care 342 mg/dl (65-105)
[2022-11-14] MEDS: ACETAMINOPHEN 325 MG TABLET 650 MG PO (21:01)
[2022-11-14] MEDS: MELATONIN 5 MG TABLET PO (21:01)
[2022-11-14 21:04] VITALS: PULSE 64
[2022-11-14] MEDS: atenoloL 50 MG TABLET PO (21:04)
[2022-11-14 21:12] LABS: Glucose Point of Care 364 mg/dl (65-105)
[2022-11-14] MEDS: INSULIN GLARGINE (*BKC) 100 UNITS/ML 20 UNITS SUB-Q (21:15)
[2022-11-14 21:41] VITALS: BP 130/68; PULSE 59; RESP 16; TEMP 36.8; O2SAT 92
[2022-11-15] MEDS: HEPARIN SODIUM 5,000 UNITS/ML VIAL 5000 UNITS SUB-Q (05:53)
[2022-11-15 06:00] VITALS: BP 157/86; PULSE 62; RESP 18; TEMP 36.8; O2SAT 95
[2022-11-15 08:32] LABS: Glucose Point of Care 390 mg/dl (65-105)
[2022-11-15] MEDS: INSULIN ASPART (*BKC) 100 UNITS/ML 9 UNITS SUB-Q ×2 (09:25→12:53)
[2022-11-15] MEDS: INSULIN ASPART (*BKC) 100 UNITS/ML SUB-Q ×2 (09:25→12:53)
[2022-11-15] MEDS: ATORVASTATIN 10 MG TABLET PO (09:26)
[2022-11-15] MEDS: BACLOFEN 10 MG TABLET PO ×2 (09:26→12:54)
[2022-11-15] MEDS: guaiFENesin 12 HR 600 MG TABCR 1200 MG PO (09:27)
[2022-11-15] MEDS: buPROPion HCL XL (24 HR) 150 MG TABCR 300 MG PO (09:27)
[2022-11-15] MEDS: CHLORTHALIDONE 25 MG TABLET PO (09:27)
[2022-11-15] MEDS: SODIUM BICARBONATE TAB 650 MG TABLET 1300 MG PO (09:28)
[2022-11-15] MEDS: EMPAGLIFLOZIN 10 MG TABLET PO (09:29)
[2022-11-15 12:09] LABS: Glucose Point of Care 389 mg/dl (65-105)
== END 2022-11-15 13:46 | DRG 178 ==
LOC: ANHED 15:34 → ANH3MEDSUR 18:34 → ANH2MED 20:34
PROVIDERS: Family Medicine; Internal Medicine; Nurse Practitioner; Admitting Provider Family Medicine; Emergency Provider Emergency Medicine; PCP Internal Medicine; Visit Provider Student in an Organized Health Care Education/Training Program
DX: U07.1 COVID-19 (principal); E87.1 Hypo-osmolality and hyponatremia; E87.20 Acidosis, unspecified; I12.9 Hypertensive chronic kidney disease with stage 1 through stage 4 chronic kidney disease, or unspecified chronic kidney disease; N18.32 Chronic kidney disease, stage 3b; G35 Multiple sclerosis; E11.22 Type 2 diabetes mellitus with diabetic chronic kidney disease; E78.5 Hyperlipidemia, unspecified; E86.0 Dehydration; M54.9 Dorsalgia, unspecified; R53.1 Weakness; W05.0XXA Fall from non-moving wheelchair, initial encounter; Z99.3 Dependence on wheelchair; Z79.4 Long term (current) use of insulin
CPT/HCPCS: 36415; 70450; 71045; 72100; 73521; 80048; 80053; 81001; 82948; 83036; 83605; 83735; 84443; 85025; 87636; 93005; 96361; 96374; 96375; 96376; 97110; 97161; 97166; 97530; 97535; 99285; A9270; G0378; J0131; J1100; J1644; J1815; J7030

== ENCOUNTER 2023-01-05 18:30 | Inpatient (IN) | payer OTHER, SELFPAY ==
[2023-01-05] VITALS (20 sets, daily range): BP systolic 130–155; BP diastolic 60–78; PULSE 60–79; RESP 12–19; TEMP 36.6; O2SAT 91–98
--- NOTE | ~2023-01-05 | XR_ITS ---
EXAMINATION: XR chest 1V portable INDICATION: Altered mental status TECHNIQUE: Portable AP chest at 1854 hours COMPARISON: 11/11/2022 FINDINGS: The lung volumes are low. No pleural effusion or pneumothorax. The lungs are free of acute opacities. The cardiomediastinal silhouette is normal. IMPRESSION: 1. No acute cardiopulmonary abnormality. Reviewed, dictated and finalized at location F. OL BUS INSPECTOR
--- NOTE | ~2023-01-05 | CT_ITS ---
EXAMINATION: CT brain wo con INDICATION: Headache COMPARISON: None TECHNIQUE: Standard unenhanced head CT. The dose-length product (DLP) was 681.00 mGy-cm. The mA was a djusted according to patient size. Iterative reconstruction technique was employed. FINDINGS: There is no intracranial hemorrhage, acute infarction, or abnormal mass lesion. The ventric les are normal. There is no abnormal mass effect or midline shift. The jack-white matter differentiat ion is normal. The basal cisterns are patent. The orbits are normal. There are bilateral mastoid effu sions. IMPRESSION: 1. No acute intracranial abnormality. 2. Bilateral mastoid effusions. Reviewed, dictated and finalized at location F. GER CRISIS
--- NOTE | ~2023-01-05 | US_ITS ---
EXAMINATION: US retroperitoneal comp DATE: 01/07/2023 16:40 INDICATION: urinary retention, joni TECHNIQUE: Multiple grayscale and Doppler ultrasound images of the kidneys were obtained. COMPARISON: None. FINDINGS: The right kidney measures 11.3 x 6.0 x 4.5 cm. The left kidney measures 10.9 x 6.7 x 5.5 cm. The kidn eys demonstrate normal parenchymal echogenicity. There is no hydronephrosis. The bladder is decompres sed by a Salas catheter. IMPRESSION: Unremarkable renal sonogram findings. Reviewed, dictated and finalized at location K. L ERECTING PUSHER
--- NOTE | ~2023-01-05 | MR_ITS ---
EXAMINATION: MR brain/brain stem wo con DATE: 01/08/2023 12:31 INDICATION: Altered mental status. TECHNIQUE: Magnetic resonance imaging (MRI) of the brain and brainstem was performed without intraven ous contrast. COMPARISON: Head CT 01/05/2023 FINDINGS: There are scattered areas of nonspecific increased T2-weighted signal intensity in the cere bral white matter and melony. There is no intracranial hemorrhage, acute infarction, or abnormal intrac ranial mass lesion. The ventricles are normal in size. There are bilateral mastoid effusions. The orb its are normal. The paranasal sinuses are clear. IMPRESSION: 1. Mild nonspecific cerebral white matter disease and pontine disease, which likely represents chroni c small vessel ischemic disease. Reviewed, dictated and finalized at location A. AL CLIMATE CHANGE RESEARCHER IMPRESSION: 1. Mild nonspecific cerebral white matter disease and pontine disease, which bianka laurent represents chronic small vessel ischemic disease.
--- NOTE | ~2023-01-05 | XR_ITS ---
EXAMINATION: XR barium swallow modified DATE: 01/06/2023 10:45 INDICATION: Dysphagia. TECHNIQUE: The patient was given barium-containing material of multiple consistencies to swallow by t robby speech pathologist while I performed fluoroscopy. Fluoroscopy exposure time was 1.8 minutes. The n umber of fluoroscopy images saved to the PACS was 1. Dose-area product was 3.133 Gy-cm^2. FINDINGS: There is a heightened gag reflex with pudding, purees, and solids. IMPRESSION: 1. No laryngeal penetration or aspiration. 2. Please refer to the speech therapy report for recommendations. Reviewed, dictated and finalized at location A. CT BANKER
--- NOTE | 2023-01-05 18:34 | ED.AMS ---
HPI - Altered Mental Status General Chief Complaint: Altered Mental Status <Addis Cohen PA-C - Last Filed: 01/06/23 04:46> Stated Complaint: AMS W/ AGGITATION <ANTONY Pederson Last Filed: 01/06/23 04:46> Time Seen by Provider: 01/05/23 18:33 <ANTONY Pederson Last Filed: 01/06/23 04:46> Source: patient, family and old records reviewed <ANTONY Pederson Last Filed: 01/06/23 04:46> Mode of arrival: EMS <ANTONY Pederson Last Filed: 01/06/23 04:46> Limitations: altered mental status and clinical condition <ANTONY Pederson Last Filed: 01/06/23 04:46> History of Present Illness HPI narrative: Patient is a 62-year-old male, with a past medical history of diabetes mellitus, CKD, multiple sclerosis, chronically wheelchair-bound, who presents the ED via EMS with report of altered mental status. Per family via EMS report, patient is typically alert and oriented x4, but became confused, agitated, altered today. Patient is only able to tell me his name currently in the ED. He is unable to tell me anything further. EMS reported that patient was recently admitted at [facility] for a urinary tract infection. Per paperwork presented with patient, he was started on Levaquin and Bactrim, filled 12/31 for 7 day courses each. Family reported to EMS the patient has been non complaint with antibiotics and his diabetic medications. BG per EMS 170s. reports patient began acting abnormally last night and began refusing his medications today. She states he refused to eat or drink anything today. He began becoming agitated at home so EMS was called. She does report patient has episodic periods of confusion like this. She also reports patient has frequent spasms of his lower extremities and is on baclofen 3 times a day. He has not had any muscle relaxants today. Previously he was on tizanidine and cyclobenzaprine. <ANTONY Pederson Last Filed: 01/06/23 04:46> Related Data Home Medications: Home Medications Medication Instructions Recorded Confirmed atenolol 50 mg tablet 50 mg PO DAILY 11/11/22 01/06/23 atorvastatin 10 mg tablet 10 mg PO DAILY 11/11/22 01/06/23 baclofen 10 mg tablet 10 - 20 mg PO TID 11/11/22 01/06/23 bupropion HCl 300 mg 24 hr tablet, 300 mg PO DAILY 11/11/22 01/06/23 extended release empagliflozin 10 mg tablet 10 mg PO DAILY 11/11/22 01/06/23 (Jardiance) ofatumumab 20 mg/0.4 mL 20 mg subcut MONTHLY 11/11/22 01/06/23 subcutaneous pen injector (Kesimpta Pen) acetaminophen 325 mg tablet 650 mg PO Q6H PRN Pain (Scale 01/06/23 01/06/23 Score 1-3) amlodipine 5 mg tablet 5 mg PO DAILY 01/06/23 01/06/23 cholecalciferol (vitamin D3) 125 125 mcg PO DAILY 01/06/23 01/06/23 mcg (5,000 unit) tablet (Vitamin D3) cyclobenzaprine 5 mg tablet 5 mg PO TID PRN Muscle Spasm 01/06/23 01/06/23 fluconazole 200 mg tablet 200 mg PO DAILY 01/06/23 01/06/23 insulin glargine 100 unit/mL (3 18 unit subcut Q12H 01/06/23 01/06/23 mL) subcutaneous pen insulin lispro 100 unit/mL 0 - 15 sliding scale dose subcut 01/06/23 01/06/23 subcutaneous pen ACHS insulin lispro 100 unit/mL 12 unit subcut TIDWM 01/06/23 01/06/23 subcutaneous pen levofloxacin 750 mg tablet 750 mg PO DAILY 01/06/23 01/06/23 multivitamin with folic acid 400 1 tablet PO DAILY 01/06/23 01/06/23 mcg tablet ofatumumab 20 mg/0.4 mL 20 mg subcut MONTHLY 01/06/23 01/06/23 subcutaneous pen injector (Kesimpta Pen) pantoprazole 40 mg tablet,delayed 40 mg PO BIDAC 01/06/23 01/06/23 release sucralfate 1 gram tablet 1 g PO AC 01/06/23 01/06/23 sulfamethoxazole 800 1 tablet PO BID 01/06/23 01/06/23 mg-trimethoprim 160 mg tablet tizanidine 4 mg tablet 4 mg PO HS 01/06/23 01/06/23 tramadol 50 mg tablet 50 mg PO Q4-6H PRN Pain (Scale 01/06/23 01/06/23 Score 4-6) triamterene 37.5 1 tablet PO DAILY 01/06/23 01/06/23 mg-hydrochlorothiazide 25 mg
--- NOTE | 2023-01-05 18:43 | ECG_ITS ---
Measurements Intervals Superior Rate: 70 P: 65 ND: 170 QRS: 35 QRSD: 94 T: 32 QT: 391 QTc: 424 Interpretive Statements SINUS RHYTHM BASELINE ARTIFACT- I, II, III, AVR, AVL NORMAL ECG COMPARED TO ECG 11/11/2022 14:15:06 NO SIGNIFICANT CHANGES Electronically Signed On 01-06-2023 6:45:44 RESEARCH ANIMAL ATTENDANT by Arun Samson D.O.
[2023-01-05 19:45] LABS: Basophils Absolute Auto 0.1 K/mm3 (0.0-0.1); Basophils Percent Auto 0.7 % (0.2-1.2); Eosinophils Absolute Auto 0.1 K/mm3 (0-0.3); Eosinophils Percent Auto 0.9 % (0-4.4); Hematocrit 38.8 % (42.0-52.0); Hemoglobin 12.3 g/dL (14.0-18.0); Immature Granulocyte Absolute 0.13 K/mm3 (0.00-0.031); Immature Granulocyte Percent A 1.4 % (0-0.5); Lymphocytes Absolute Auto 1.52 K/mm3 (0.9-3.2); Lymphocytes Percent Auto 16.5 % (18.3-44.2); Mean Corpuscular HGB Conc 31.7 g/dl (32-36); Mean Corpuscular Hemoglobin 30.1 pg (26-34); Mean Corpuscular Volume 95.1 fl (80-100); Mean Platelet Volume 10.8 fl (7.4-10.4); Monocytes Absolute Auto 1.1 K/mm3 (0.1-0.6); Monocytes Percent Auto 12.4 % (2.6-8.5); Neutrophils Absolute Auto 6.3 K/mm3 (1.3-6.7); Neutrophils Percent Auto 68.1 % (45.5-73.1); Platelet Count Result 505 k/mm3 (150-375); Red Blood Count 4.08 M/mm3 (4.6-6.20); Red Cell Distribution Width 15.9 % (11.5-14.5); White Blood Count 9.2 K/mm3 (4.5-10.0)
[2023-01-05] MEDS: SODIUM CHLORIDE 0.9% IV 1,000 ML 999 ML IV CONT ×2 (19:54→22:30)
[2023-01-05 19:56] LABS: Lactic Acid Reflex 1.5 mmol/L (0.7-2.0)
[2023-01-05 19:57] LABS: Alanine Aminotransferase 27 U/L (6-50); Albumin Level 3.7 g/dL (3.5-5.1); Alkaline Phosphatase 119 U/L (38-126); Anion Gap 15 mmol/L (8-16); Aspartate Amino Transferase 27 U/L (17-59); Bilirubin,Total 0.5 mg/dL (0.2-1.3); Blood Urea Nitrogen 47 mg/dL (9-20); Calcium 9.6 mg/dL (8.4-10.2); Carbon Dioxide 18 mmol/L (22-30); Chloride 105 mmol/L (98-107); Estimated Glomerular Filt Rate 31; Glucose 188 mg/dL (65-110); Potassium 4.6 mmol/L (3.4-5.0); Sodium 138 mmol/L (137-145)
[2023-01-05 20:43] LABS: Appearance Urine Clear (Clear); Bacteria Urine None Seen /hpf; Bilirubin Urine Negative (Negative); Blood Urine 2+ (Negative); Color Urine Yellow (Yellow); Glucose Urine UA 3+ mg/dL (Negative); Ketones Urine Trace mg/dL (Negative); Leukocyte Esterase Ur Negative LEU/UL (Negative); Nitrate Urine Negative (Negative); Non Pathogenic Casts 0-2; Protein Urine 2+ mg/dL (Negative); RBC Urine 0-2 /hpf (0-2); Specific Grav Ur 1.015 (1.001-1.035); Squamous Epithelial Cell Urine None seen /hpf (Few); Urobilinogen Urine 0.2 mg/dL (<2.0); WBC Urine 0-5 /hpf
--- NOTE | 2023-01-05 20:53 | PC.NURSE ---
performed straight catheterization at this time. Accompanied by ANA Fonseca tech. 1645 mL urine drained from bladder.
[2023-01-05 21:11] LABS: Add Urine Microscopic? YES
[2023-01-05] MEDS: diazePAM INJ (*CRX) 10 MG/2 ML SYRINGE 2 MG IV PUSH (21:44)
[2023-01-05 22:29] LABS: Ammonia < 9 umol/L (9-30)
[2023-01-05 22:36] LABS: Alveolar/Arterial O2 Gradient 60.9 mmHg; Base Excess ABG -6.6 mEq/l (+/-2.0); Carboxyhemoglobin 0.8 % THb (0-2.0); Fractional Inspired Oxygen 21 %; HCO3 ABG 16.5 mEq/l (22.0-26.0); Methemoglobin ABG 0.2 %THb (0-1.5); Oxygen Saturation ABG 90.6 % (95.0-100.0); Oxyhemoglobin 88.3 % THb (90.0-100.0); PCO2 ABG 26.5 mmHg (35.0-45.0); PO2 ABG 57.1 mmHg (80.0-100.0); PO2 FiO2 Ratio Arterial Blood 2.72 %; Reduced Hemoglobin 10.7 %THb (0-5.0); Total Hemoglobin 12.9 g/dL (12.0-18.0); pH ABG 7.411 (7.350-7.450)
[2023-01-05 22:37] LABS: Modified Allen's Test Pass; Site Drawn LEFT RADIAL
[2023-01-05 22:54] LABS: Influenza A QL RT-PCR Negative (Negative); Influenza B QL RT-PCR Negative (Negative); SARS-CoV-2 RNA PCR Negative
[2023-01-06] VITALS (12 sets, daily range): BP systolic 117–147; BP diastolic 61–98; PULSE 62–96; RESP 14–24; TEMP 35.6–36.6; O2SAT 92–98
[2023-01-06] MEDS: SODIUM CHLORIDE 0.9% IV 1,000 ML 125 ML IV CONT ×3 (02:00→22:46)
--- NOTE | 2023-01-06 02:52 | PC.NURSE ---
Left message for Caitlin to return call for admission information.
[2023-01-06] MEDS: BACLOFEN 10 MG TABLET PO (03:29)
--- NOTE | 2023-01-06 03:30 | PM.IMHP ---
H&P: HPI History of Present Illness Date/Time: 01/06/23 03:30 Chief Complaint: called EMS because patient was confused Narrative: 62-year-old male with past medical history multiple sclerosis/Wheelchair-bound, chronic kidney disease stage 3, morbid obesity, essential hypertension, type 2 diabetes mellitus and recurrent urinary tract infections who presented to the ER via EMS from home due to altered mental status. The patient had been hospitalized at [facility] in [place] from 12/23/2022 through 12/31/2022 due to UTI and acute kidney injury. The patient was treated with fluconazole, Bactrim, and Levaquin. He refused his antibiotics today but was due to complete his antibiotic course today anyway. The did not report patient having any fevers. She stated that he was not eating and drinking. according to the patient's the patient is usually alert orient x4 but has become confused agitated altered today. He only a oriented to his name in the ER and at the time of my evaluation. He just keeps repeating these, please help me. In the ER straight catheterization was performed the patient had 1.6 L of retained urine. However the patient's urine did not appear to be frankly infected. The patient evidently does have episodic events of confusion where he refuses to eat and drink. This is not unusual for him. However his agitation is evidently at new event. The patient does have history of frequent spasms of his lower extremities. He is on baclofen 3 times a day as well as tizanidine and cyclobenzaprine. The patient is reported the ER staff that he was no longer on the tizanidine and cyclobenzaprine. But it looks like these medications were filled a few days ago. In the ER the patient spit out baclofen. He received 1 dose of IV Valium 2 mg which seemed to help his symptoms briefly. On evaluation the patient mucous membranes seem to be dry. I asked him if he has pain any tells me that he is having pain in his hat. However he seems to be gesturing to his leg but it is difficult to tell due to his lack of coordination with his multiple sclerosis. He has 5/5 registration representative strength on the right. He has chronic changes to his left hand consistent with neurologic compromise. He does follow commands with repeat redirection and will stick his tongue out and open his mouth to command. He has been afebrile since presentation. Source of information is past medical records and ER report. The patient is unable to provide any history and family is not available to provide history. during the time of my evaluation the patient was noted to fall asleep in have frequent episodes of witnessed apnea. Patient was evidently having intermittent hypoxia with his episodes of apnea and was placed on 2 L nasal cannula in the ER. Review of Systems Review of Systems: ROS unobtainable: Yes unobtainable due to mental status PMFSH Past Medical History Medical History Chronic renal failure, stage 3 (moderate) DM2 (diabetes mellitus, type 2) Essential hypertension Hyperlipidemia Multiple sclerosis Surgical History Surgical History H/O wrist surgery Family History Family History Mother Diabetes mellitus Father Cerebrovascular accident Other Hypertension Social History Social History Social History: He is disabled and lives with his and has adult 2 children. 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 He does not use any alcohol or marijuana. His is the durable power clerk television production for healthcare. Code status: Full code Smoking status: Never smoker Second hand tobacco smoke exposure: No Alcohol intake: never Substance use: never Substance use type: does not use Lack of Transportation: No
[2023-01-06] MEDS: TIZANIDINE HCL 4 MG TABLET PO ×2 (04:45→20:47)
[2023-01-06] MEDS: CYCLOBENZAPRINE HCL 5 MG TABLET PO ×3 (04:45→16:03)
[2023-01-06] MEDS: traMADol HCL (*CRX) 50 MG TABLET PO ×3 (04:49→16:03)
[2023-01-06 06:12] LABS: Basophils Absolute Auto 0.1 K/mm3 (0.0-0.1); Basophils Percent Auto 0.9 % (0.2-1.2); Eosinophils Absolute Auto 0.1 K/mm3 (0-0.3); Eosinophils Percent Auto 0.8 % (0-4.4); Hematocrit 37.6 % (42.0-52.0); Hemoglobin 11.5 g/dL (14.0-18.0); Immature Granulocyte Absolute 0.13 K/mm3 (0.00-0.031); Immature Granulocyte Percent A 1.7 % (0-0.5); Lymphocytes Absolute Auto 1.51 K/mm3 (0.9-3.2); Lymphocytes Percent Auto 19.2 % (18.3-44.2); Mean Corpuscular HGB Conc 30.6 g/dl (32-36); Mean Corpuscular Hemoglobin 29.6 pg (26-34); Mean Corpuscular Volume 96.7 fl (80-100); Mean Platelet Volume 10.7 fl (7.4-10.4); Monocytes Percent Auto 12.2 % (2.6-8.5); Neutrophils Absolute Auto 5.1 K/mm3 (1.3-6.7); Neutrophils Percent Auto 65.2 % (45.5-73.1); Platelet Count Result 431 k/mm3 (150-375); Red Blood Count 3.89 M/mm3 (4.6-6.20); Red Cell Distribution Width 15.9 % (11.5-14.5); White Blood Count 7.9 K/mm3 (4.5-10.0)
[2023-01-06 06:21] LABS: Glucose Point of Care 181 mg/dl (65-105)
[2023-01-06 06:25] LABS: Anion Gap 13 mmol/L (8-16); Blood Urea Nitrogen 46 mg/dL (9-20); Calcium 9.2 mg/dL (8.4-10.2); Carbon Dioxide 16 mmol/L (22-30); Chloride 108 mmol/L (98-107); Estimated CRCL calculation 42 ml/min; Estimated Glomerular Filt Rate 34; Glucose 183 mg/dL (65-110); Potassium 4.2 mmol/L (3.4-5.0); Sodium 137 mmol/L (137-145)
--- NOTE | 2023-01-06 08:14 | PM.IMPN ---
Progress Note: A&P Assessment and Plan (1) Altered mental status: Qualifiers: Altered mental status type: unspecified Qualified Code(s): R41.82 - Altered mental status, unspecified Code(s): R41.82 - Altered mental status, unspecified Status: Acute (2) Urinary retention: Code(s): R33.9 - Retention of urine, unspecified Status: Acute (3) Acute kidney injury: Code(s): N17.9 - Acute kidney failure, unspecified Status: Acute (4) Multiple sclerosis: Code(s): G35 - Multiple sclerosis Status: Acute (5) Stage 3b chronic kidney disease: Code(s): N18.32 - Chronic kidney disease, stage 3b Status: Chronic Plan Assessment and plan (1) Urinary retention: ?Code(s): R33.9 - Retention of urine, unspecified ?Status:?Acute (2) Acute kidney injury: ?Code(s): N17.9 - Acute kidney failure, unspecified ?Status:?Acute (3) Altered mental status: ?Qualifiers: ?Altered mental status type:?unspecified? Qualified Code(s):?R41.82 - Altered mental status, unspecified ?Code(s): R41.82 - Altered mental status, unspecified ?Status:?Acute (4) Multiple sclerosis: ?Code(s): G35 - Multiple sclerosis ?Status:?Acute (5) Stage 3b chronic kidney disease: ?Code(s): N18.32 - Chronic kidney disease, stage 3b ?Status:?Chronic Acute metabolic encephalopathy Likely secondary to urinary retention, acute renal failure CT head shows no acute intracranial issues Neuro checks Four precaution Urinary retention, acute renal failure UA does not show pyuria Acute renal failure resulting from urinary retention and dehydration Starting normal saline IV 125ml/h Consider placing for Case HR and urology consultation if your intention persists Continue tamsulosin 0.4 mg daily. Follow-up with CBC BMP Right hip pain Pelvic and hip x-ray does not show fracture Optimize pain management Consult PT OT for evaluation If pain persist may consider MRI of the Continue rest home medications . Subjective Date/time seen: 01/06/23 08:14 Interval history: I saw and examined patient today. Patient is alert oriented x3, but cannot recall what happened yesterday Patient has some right groin pain, restricted movement of right hip Exam Narrative: GENERAL: Pleasant, in no acute distress. Well-nourished. - EYES: EOMI. Anicteric. - HENT: Moist mucous membranes. - LUNGS: Clear to auscultation bilaterally, no wheezing, rhonchi, or rales. - CARDIOVASCULAR: Regular rate and rhythm. No murmur. No JVD. - ABDOMEN: Soft, non-tender and non-distended. No palpable masses. - EXTREMITIES: Right groin pain, restrict movement of the right hip of inner rotation. no edema. Peripheral pulses 2+. Non-tender. - NEUROLOGIC: No focal neurological deficits. CN II-XII grossly intact. - PSYCHIATRIC: Awake, Alert and oriented x 3. Appropriate mood and affect. - SKIN: No rashes or lesions. Warm. - LYMPH: No cervical lymphadenopathy. Objective Data Vital Signs Vital Signs: Vital Signs - 24 hr 01/05/23 18:36 01/05/23 18:50 01/05/23 19:10 Temperature 97.8 F Pulse Rate 67 72 63 Respiratory Rate 16 13 Blood Pressure 155/75 H Pulse Oximetry 95 92 95 Oxygen Delivery Room Air Oxygen Flow Rate Fraction of Inspired Oxygen 01/05/23 19:11 01/05/23 19:15 01/05/23 19:30 Temperature Pulse Rate 64 69 64 Respiratory Rate 16 19 12 Blood Pressure 145/76 H Pulse Oximetry 94 94 Oxygen Delivery Oxygen Flow Rate Fraction of Inspired Oxygen 01/05/23 19:45 01/05/23 20:00 01/05/23 20:15 Temperature Pulse Rate 61 60 69 Respiratory Rate 14 15 14 Blood Pressure Pulse Oximetry 98 Oxygen Delivery Oxygen Flow Rate Fraction of Inspired Oxygen 01/05/23 20:30 01/05/23 20:45 01/05/23 20:48 Temperature Pulse Rate 68 71 65 Respiratory Rate 14 12 17 Blood Pressure 133/78 Pulse Oximetry 94 Oxygen D
[2023-01-06] MEDS: SUCRALFATE 1 GM TABLET PO ×3 (08:26→16:03)
[2023-01-06] MEDS: buPROPion HCL XL (24 HR) 150 MG TABCR 300 MG PO (08:26)
[2023-01-06] MEDS: ATORVASTATIN 10 MG TABLET PO (08:26)
[2023-01-06] MEDS: TAMSULOSIN HCL 0.4 MG CAPSULE PO (08:26)
[2023-01-06] MEDS: BACLOFEN 10 MG TABLET 20 MG PO ×3 (08:26→16:04)
[2023-01-06] MEDS: PANTOPRAZOLE 40 MG TABLET PO ×2 (08:27→16:03)
[2023-01-06] MEDS: EMPAGLIFLOZIN 10 MG TABLET PO (08:27)
[2023-01-06] MEDS: amLODIPine BESYLATE 5 MG TABLET PO (08:27)
[2023-01-06] MEDS: atenoloL 50 MG TABLET PO (08:27)
[2023-01-06] MEDS: INSULIN GLARGINE (*BKC) 100 UNITS/ML 12 UNITS SUB-Q ×2 (08:28→20:47)
[2023-01-06 08:34] LABS: Glucose Point of Care 177 mg/dl (65-105)
[2023-01-06] MEDS: ENOXAPARIN 40 MG/0.4 ML SYRINGE SUB-Q (09:07)
--- NOTE | 2023-01-06 10:09 | PCSTNOTE ---
Please refer to the Bedside Swallow Evaluation in the EMR. Please note, silent aspiration cannot be ruled out at bedside.
--- NOTE | 2023-01-06 10:47 | PCSTNOTE ---
Please refer to the Modified Barium Swallow Evaluation in the EMR.
[2023-01-06 11:57] LABS: Glucose Point of Care 221 mg/dl (65-105)
[2023-01-06] MEDS: INSULIN ASPART (*BKC) 100 UNITS/ML SUB-Q (12:30)
[2023-01-06 16:43] LABS: Glucose Point of Care 152 mg/dl (65-105)
[2023-01-06] MEDS: HYDROmorphone HCL INJ (*CRX) 1 MG/ML SYR 0.5 MG IV PUSH (17:31)
[2023-01-06 20:57] LABS: Glucose Point of Care 177 mg/dl (65-105)
--- NOTE | 2023-01-06 22:22 | PCRCNOTE ---
Pt U/A to cooperate due to decreasing mental status ?? dementia - pt started on Autopap
[2023-01-07] MEDS: HYDROmorphone HCL INJ (*CRX) 1 MG/ML SYR 0.5 MG IV PUSH ×2 (05:23→13:07)
[2023-01-07] MEDS: CYCLOBENZAPRINE HCL 5 MG TABLET PO (05:24)
[2023-01-07] MEDS: PANTOPRAZOLE 40 MG TABLET PO ×2 (05:29→17:20)
[2023-01-07] MEDS: SUCRALFATE 1 GM TABLET PO ×3 (05:29→17:21)
[2023-01-07 06:00] VITALS: BP 177/72; PULSE 72; RESP 16; TEMP 36.1; O2SAT 98
[2023-01-07] MEDS: SODIUM CHLORIDE 0.9% IV 1,000 ML 125 ML IV CONT (06:20)
[2023-01-07 06:30] LABS: Hematocrit 35.2 % (42.0-52.0); Hemoglobin 11.1 g/dL (14.0-18.0); Mean Corpuscular HGB Conc 31.5 g/dl (32-36); Mean Corpuscular Hemoglobin 29.9 pg (26-34); Mean Corpuscular Volume 94.9 fl (80-100); Mean Platelet Volume 10.5 fl (7.4-10.4); Platelet Count Result 451 k/mm3 (150-375); Red Blood Count 3.71 M/mm3 (4.6-6.20); White Blood Count 7.3 K/mm3 (4.5-10.0)
[2023-01-07 06:49] LABS: Anion Gap 13 mmol/L (8-16); Blood Urea Nitrogen 41 mg/dL (9-20); Calcium 9.2 mg/dL (8.4-10.2); Carbon Dioxide 16 mmol/L (22-30); Chloride 113 mmol/L (98-107); Estimated CRCL calculation 47 ml/min; Estimated Glomerular Filt Rate 39; Glucose 153 mg/dL (65-110); Potassium 4.2 mmol/L (3.4-5.0); Sodium 142 mmol/L (137-145)
[2023-01-07 08:17] LABS: Glucose Point of Care 140 mg/dl (65-105)
[2023-01-07] MEDS: INSULIN GLARGINE (*BKC) 100 UNITS/ML 12 UNITS SUB-Q ×2 (10:57→21:29)
[2023-01-07 10:58] LABS: Glucose Point of Care 151 mg/dl (65-105)
[2023-01-07] MEDS: ENOXAPARIN 40 MG/0.4 ML SYRINGE SUB-Q (10:59)
[2023-01-07] MEDS: buPROPion HCL XL (24 HR) 150 MG TABCR 300 MG PO (10:59)
[2023-01-07 11:00] VITALS: PULSE 69
[2023-01-07] MEDS: atenoloL 50 MG TABLET PO (11:00)
[2023-01-07] MEDS: BACLOFEN 10 MG TABLET 20 MG PO ×3 (11:00→17:21)
[2023-01-07] MEDS: EMPAGLIFLOZIN 10 MG TABLET PO (11:00)
[2023-01-07] MEDS: ATORVASTATIN 10 MG TABLET PO (11:00)
[2023-01-07] MEDS: TAMSULOSIN HCL 0.4 MG CAPSULE PO (11:00)
[2023-01-07] MEDS: amLODIPine BESYLATE 5 MG TABLET PO (11:02)
[2023-01-07 14:00] VITALS: BP 155/72; PULSE 77; RESP 16; TEMP 36.8; O2SAT 97
--- NOTE | 2023-01-07 14:07 | PM.IMPN ---
Progress Note: A&P Assessment and Plan (1) Type 2 diabetes mellitus with hyperglycemia: Qualifiers: Diabetes mellitus local company intermodal truck driver insulin use: with local company intermodal truck driver use Qualified Code(s): E11.65 - Type 2 diabetes mellitus with hyperglycemia; Z79.4 - half-way (current) use of insulin Code(s): E11.65 - Type 2 diabetes mellitus with hyperglycemia Status: Acute (2) Altered mental status: Qualifiers: Altered mental status type: unspecified Qualified Code(s): R41.82 - Altered mental status, unspecified Code(s): R41.82 - Altered mental status, unspecified Status: Acute (3) Acute kidney injury: Code(s): N17.9 - Acute kidney failure, unspecified Status: Acute (4) Urinary retention: Code(s): R33.9 - Retention of urine, unspecified Status: Acute Plan 62-year-old male with past medical history multiple sclerosis/Wheelchair-bound, chronic kidney disease stage 3, morbid obesity, essential hypertension, type 2 diabetes mellitus and recurrent urinary tract infections who presented to the ER via EMS from home due to altered mental status. 1)Acute Encephalopathy: ?etiology CT head unremarkable 2)ELVA on Pre existing CKD stage 3B Await renal USG Kidney function has improved, c/w epps D/c IV fluids Recheck BMP in AM C/w flomax 3)Right Hip pain: No fracture Pt/OT 4)Diabetes mellitus: BG check TID AC and HS c/w lantus+SS Adjsut dose as needed 4)DVT ppx:Lovenox 5)Code:Full 6)Dispo:pending improvement Time Spent With Patient Time with patient: 25 - 35 minutes Subjective Date/time seen: 01/07/23 14:07 Interval history: confused, seems to be in pain but unable to tell what is bothering him Review of Systems Review of Systems: ROS unobtainable: Yes unobtainable due to mental status Exam Narrative: GENERAL:?confused - EYES: EOMI. Anicteric. - HENT: Moist mucous membranes. - LUNGS: Clear to auscultation bilaterally, no wheezing, rhonchi, or rales. - CARDIOVASCULAR: Regular rate and rhythm. No murmur. No JVD. - ABDOMEN: Soft, non-tender and non-distended. No palpable masses. - EXTREMITIES:? no edema. - NEUROLOGIC:unable to assess - PSYCHIATRIC: Awake, Alert - SKIN: No rashes or lesions. Warm. - LYMPH: No cervical lymphadenopathy. Objective Data Vital Signs Vital Signs: Vital Signs - 24 hr 01/06/23 15:41 01/06/23 21:13 01/06/23 22:25 Temperature 97.1 F L 96.1 F L Pulse Rate 62 96 82 Respiratory Rate 16 24 H 19 Blood Pressure 147/81 H Pulse Oximetry 98 92 97 Oxygen Delivery Autopap 01/06/23 22:00 01/07/23 06:00 01/07/23 11:00 Temperature 97 F L Pulse Rate 72 69 Respiratory Rate 16 Blood Pressure 177/72 H Pulse Oximetry 97 98 Oxygen Delivery Room Air Intake/Output Intake/Output: Intake & Output 01/04/23 01/05/23 01/06/23 01/07/23 23:59 23:59 23:59 23:59 Intake Total 1999 2440 1150 Output Total 600 1200 Balance 1999 1840 -50 Meds/Results Medications: Active Medications Generic Name Dose Route Start Last Admin Trade Name Keenanq PRN Reason Stop Dose Admin Amlodipine Besylate 5 mg 01/06/23 09:00 01/07/23 11:02 Amlodipine Besylate 5 Mg Tablet PO 5 mg DAILY CHINO Administration Atenolol 50 mg 01/06/23 09:00 01/07/23 11:00 Atenolol 50 Mg Tablet PO 50 mg DAILY CHINO Administration Atorvastatin Calcium 10 mg 01/06/23 09:00 01/07/23 11:00 Atorvastatin 10 Mg Tablet PO 10 mg DAILY CHINO Administration Baclofen 20 mg 01/06/23 09:00 01/07/23 13:10 Baclofen 10 Mg Tablet PO 20 mg TID CHINO Administration Bupropion HCl 300 mg 01/06/23 09:00 01/07/23 10:59 Bupropion Hcl Xl (24 Hr) 150 Mg Tabcr PO 300 mg DAILY CHINO Administration Cyclobenzaprine HCl 5 mg 01/06/23 04:19 01/07/23 05:24 Cyclobenzaprine Hcl 5 Mg Tablet PO 5 mg TID PRN Administration Muscle Spasm Dextrose 12.5 gm 01/06/23 00:09 Dextrose 50% 25 Gm/50 Ml Syringe IV PUSH P
[2023-01-07 17:17] LABS: Glucose Point of Care 179 mg/dl (65-105)
[2023-01-07] MEDS: TIZANIDINE HCL 4 MG TABLET PO (21:26)
[2023-01-07 21:28] LABS: Glucose Point of Care 177 mg/dl (65-105)
[2023-01-07 22:00] VITALS: BP 142/69; PULSE 58; RESP 16; TEMP 36.1; O2SAT 93
--- NOTE | 2023-01-07 22:39 | PCRCNOTE ---
RT tried to apply hospital unit- pt extremely confused and yelling for help and that he did not want the unit on. Hospital unit on standby at bedside.
[2023-01-08] MEDS: PANTOPRAZOLE 40 MG TABLET PO ×2 (05:47→18:41)
[2023-01-08] MEDS: SUCRALFATE 1 GM TABLET PO (05:47)
[2023-01-08 06:00] VITALS: BP 150/76; PULSE 66; RESP 20; TEMP 36; O2SAT 98
[2023-01-08 06:12] LABS: Basophils Absolute Auto 0.1 K/mm3 (0.0-0.1); Basophils Percent Auto 0.9 % (0.2-1.2); Eosinophils Absolute Auto 0.1 K/mm3 (0-0.3); Eosinophils Percent Auto 1.5 % (0-4.4); Hematocrit 36.5 % (42.0-52.0); Hemoglobin 11.6 g/dL (14.0-18.0); Immature Granulocyte Absolute 0.04 K/mm3 (0.00-0.031); Immature Granulocyte Percent A 0.5 % (0-0.5); Lymphocytes Percent Auto 19.9 % (18.3-44.2); Mean Corpuscular HGB Conc 31.8 g/dl (32-36); Mean Corpuscular Hemoglobin 30.6 pg (26-34); Mean Corpuscular Volume 96.3 fl (80-100); Mean Platelet Volume 10.3 fl (7.4-10.4); Monocytes Absolute Auto 0.6 K/mm3 (0.1-0.6); Monocytes Percent Auto 8.4 % (2.6-8.5); Neutrophils Absolute Auto 5.2 K/mm3 (1.3-6.7); Neutrophils Percent Auto 68.8 % (45.5-73.1); Platelet Count Result 423 k/mm3 (150-375); Red Blood Count 3.79 M/mm3 (4.6-6.20); White Blood Count 7.5 K/mm3 (4.5-10.0)
[2023-01-08 06:27] LABS: Anion Gap 11 mmol/L (8-16); Blood Urea Nitrogen 32 mg/dL (9-20); Calcium 9.4 mg/dL (8.4-10.2); Carbon Dioxide 17 mmol/L (22-30); Chloride 112 mmol/L (98-107); Estimated CRCL calculation 53 ml/min; Estimated Glomerular Filt Rate 44; Glucose 164 mg/dL (65-110); Sodium 140 mmol/L (137-145)
[2023-01-08 07:59] LABS: Glucose Point of Care 156 mg/dl (65-105)
--- NOTE | 2023-01-08 08:29 | PCOTNOTE ---
Spoke with ordering MD Dr. Alvarez who reports bedrest orders can be removed by nursing. Will follow up with nursing.
[2023-01-08 09:14] VITALS: PULSE 68
[2023-01-08] MEDS: buPROPion HCL XL (24 HR) 150 MG TABCR 300 MG PO (09:14)
[2023-01-08] MEDS: ENOXAPARIN 40 MG/0.4 ML SYRINGE SUB-Q (09:14)
[2023-01-08] MEDS: atenoloL 50 MG TABLET PO (09:14)
[2023-01-08] MEDS: ATORVASTATIN 10 MG TABLET PO (09:14)
[2023-01-08] MEDS: TAMSULOSIN HCL 0.4 MG CAPSULE PO (09:15)
[2023-01-08] MEDS: BACLOFEN 10 MG TABLET 20 MG PO ×2 (09:15→18:41)
[2023-01-08] MEDS: amLODIPine BESYLATE 5 MG TABLET PO (09:16)
[2023-01-08] MEDS: EMPAGLIFLOZIN 10 MG TABLET PO (09:16)
[2023-01-08] MEDS: INSULIN GLARGINE (*BKC) 100 UNITS/ML 12 UNITS SUB-Q ×2 (09:19→21:11)
[2023-01-08 09:32] VITALS: BMI 11.0
[2023-01-08 11:37] LABS: Glucose Point of Care 168 mg/dl (65-105)
[2023-01-08 11:54] VITALS: BMI 38.9
--- NOTE | 2023-01-08 13:52 | PM.IMPN ---
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: with centerless grinder tender use Qualified Code(s): E11.65 - Type 2 diabetes mellitus with hyperglycemia; Z79.4 - senior living (current) use of insulin Code(s): E11.65 - Type 2 diabetes mellitus with hyperglycemia Status: Acute (2) Altered mental status: Qualifiers: Altered mental status type: unspecified Qualified Code(s): R41.82 - Altered mental status, unspecified Code(s): R41.82 - Altered mental status, unspecified Status: Acute (3) Acute kidney injury: Code(s): N17.9 - Acute kidney failure, unspecified Status: Acute (4) Urinary retention: Code(s): R33.9 - Retention of urine, unspecified Status: Acute Plan 62-year-old male with past medical history multiple sclerosis/Wheelchair-bound, chronic kidney disease stage 3, morbid obesity, essential hypertension, type 2 diabetes mellitus and recurrent urinary tract infections who presented to the ER via EMS from home due to altered mental status. 1)Acute Encephalopathy: ?etiology CT head unremarkable MRI brain unremarkable today Follows up with Dr Dolan in [facility], concerned about complete change in his mental status this admission Will try to obtain records from Dr Dolan's office along with last MRI Neurology consult 2)ELVA on Pre existing CKD stage 3B Renal USG unremarkable Kidney function has improved, c/w epps Recheck BMP in AM C/w flomax 3)Right Hip pain: No fracture Pt/OT 4)Diabetes mellitus: BG check TID AC and HS c/w lantus+SS Adjsut dose as needed 4)DVT ppx:Lovenox 5)Code:Full 6)Dispo:pending improvement Time Spent With Patient Time with patient: 25 - 35 minutes Subjective Date/time seen: 01/08/23 13:52 Interval history: remains confused Review of Systems Review of Systems: ROS unobtainable: Yes unobtainable due to mental status Exam Narrative: GENERAL:?confused - EYES: EOMI. Anicteric. - HENT: Moist mucous membranes. - LUNGS: Clear to auscultation bilaterally, no wheezing, rhonchi, or rales. - CARDIOVASCULAR: Regular rate and rhythm. No murmur. No JVD. - ABDOMEN: Soft, non-tender and non-distended. No palpable masses. - EXTREMITIES:? no edema. - NEUROLOGIC:unable to assess - PSYCHIATRIC: Awake, Alert - SKIN: No rashes or lesions. Warm. - LYMPH: No cervical lymphadenopathy. Objective Data Vital Signs Vital Signs: Vital Signs - 24 hr 01/07/23 14:00 01/07/23 22:00 01/08/23 06:00 Temperature 98.2 F 97 F L 96.8 F L Pulse Rate 77 58 L 66 Respiratory Rate 16 16 20 Blood Pressure 155/72 H 142/69 H 150/76 H Pulse Oximetry 97 93 98 Oxygen Delivery 01/08/23 09:14 01/08/23 09:10 01/08/23 09:32 Temperature Pulse Rate 68 Respiratory Rate Blood Pressure Pulse Oximetry Oxygen Delivery Room Air Room Air 01/08/23 09:20 Temperature Pulse Rate Respiratory Rate Blood Pressure Pulse Oximetry Oxygen Delivery Room Air Intake/Output Intake/Output: Intake & Output 01/05/23 01/06/23 01/07/23 01/08/23 23:59 23:59 23:59 23:59 Intake Total 1999 2440 1530 140 Output Total 600 2600 1200 Balance 1999 4113 -1070 1060 Meds/Results Medications: Active Medications Generic Name Dose Route Start Last Admin Trade Name Catrina PRN Reason Stop Dose Admin Amlodipine Besylate 5 mg 01/06/23 09:00 01/08/23 09:16 Amlodipine Besylate 5 Mg Tablet PO 5 mg DAILY CHINO Administration Atenolol 50 mg 01/06/23 09:00 01/08/23 09:14 Atenolol 50 Mg Tablet PO 50 mg DAILY CHINO Administration Atorvastatin Calcium 10 mg 01/06/23 09:00 01/08/23 09:14 Atorvastatin 10 Mg Tablet PO 10 mg DAILY CHINO Administration Baclofen 20 mg 01/06/23 09:00 01/08/23 09:15 Baclofen 10 Mg Tablet PO 20 mg TID CHINO Administration Bupropion HCl 300 mg 01/06/23 09:00 01/08/23 09:14
[2023-01-08 14:00] VITALS: BP 153/83; PULSE 63; RESP 14; TEMP 35.8; O2SAT 98
[2023-01-08 16:22] LABS: Glucose Point of Care 146 mg/dl (65-105)
[2023-01-08] MEDS: SENNA/DOCUSATE SODIUM TABLET 1 TAB PO (18:41)
[2023-01-08 20:00] VITALS: PULSE 80; RESP 16; O2SAT 100
[2023-01-08] MEDS: traMADol HCL (*CRX) 50 MG TABLET PO (21:20)
[2023-01-08 21:21] LABS: Glucose Point of Care 148 mg/dl (65-105)
[2023-01-08] MEDS: TIZANIDINE HCL 4 MG TABLET PO (21:22)
[2023-01-08 21:29] VITALS: BP 132/96; PULSE 80; RESP 16; TEMP 36.8; O2SAT 100
--- NOTE | 2023-01-09 02:09 | PC.NURSE ---
Spoke with Dr. Hernandez about patient not voiding since epps removed at 18:50. Bladder scan done with 206ml as bladder volume. Says to repeat bladder scan in 6 hours.
[2023-01-09 05:32] VITALS: BP 146/81; PULSE 74; RESP 18; TEMP 36.3; O2SAT 98
--- NOTE | 2023-01-09 05:40 | PC.NURSE ---
Bladder scanned patient r/t yelling out and saying his bladder hurt. 445ml scanned. Dr. Hernandez orders to straight cath now and recheck bladder scan in 6H.
[2023-01-09] MEDS: PANTOPRAZOLE 40 MG TABLET PO ×2 (05:44→16:25)
[2023-01-09] MEDS: SUCRALFATE 1 GM TABLET PO ×3 (05:44→16:26)
[2023-01-09 07:41] LABS: Glucose Point of Care 138 mg/dl (65-105)
--- NOTE | 2023-01-09 08:42 | PM.IMPN ---
Progress Note: A&P Assessment and Plan (1) Type 2 diabetes mellitus with hyperglycemia: Qualifiers: Diabetes mellitus extermination inspector insulin use: with extermination inspector use Qualified Code(s): E11.65 - Type 2 diabetes mellitus with hyperglycemia; Z79.4 - [facility] (current) use of insulin Code(s): E11.65 - Type 2 diabetes mellitus with hyperglycemia Status: Acute (2) Altered mental status: Qualifiers: Altered mental status type: unspecified Qualified Code(s): R41.82 - Altered mental status, unspecified Code(s): R41.82 - Altered mental status, unspecified Status: Acute (3) Acute kidney injury: Code(s): N17.9 - Acute kidney failure, unspecified Status: Acute (4) Urinary retention: Code(s): R33.9 - Retention of urine, unspecified Status: Acute Plan 62-year-old male with past medical history multiple sclerosis/Wheelchair-bound, chronic kidney disease stage 3, morbid obesity, essential hypertension, type 2 diabetes mellitus and recurrent urinary tract infections who presented to the ER via EMS from home due to altered mental status. 1)Acute Encephalopathy: resolving, multifactorial CT head unremarkable MRI brain unremarkable Follows up with Dr Dolan in [facility] for possible MS, concerned about complete change in his mental status obtain records from Dr Dolan's office along with last MRI Neurology consult recommends cont current treatment, d/c and f/u outpatient with MoBap 2)ELVA on Pre existing CKD stage 3B Renal USG unremarkable Kidney function has improved, c/w epps C/w flomax 3)Right Hip pain: No fracture Pt/OT 4)Diabetes mellitus: BG check TID AC and HS c/w lantus+SS Adjust dose as needed 5)Urinary retention: renal US essentially WNL place epps consult urology 6)DVT ppx:Lovenox 7)Code:Full 8)Dispo:pending improvement Subjective Date/time seen: 01/09/23 08:42 Interval history: No overnight events noted. No chest pain or shortness of breath. No nausea, vomiting or diarrhea. No fevers or chills. Patient had episode of somnolence earlier today, easily arousable for this examiner. Review of Systems Review of Systems: 12 point review of systems was assessed and was negative except as noted in the HPI Exam Narrative: General: Somnolent, easily arousable, appears to be alert oriented per baseline HEENT: Atraumatic, normocephalic, mucous membranes moist CV: Regular rate and rhythm, S1, S2 Lungs: Clear to auscultation bilaterally, no rales or crackles noted, no wheezes, good air entry Abdomen: Soft, nontender, nondistended Extremities: Normal to inspection Skin: No rashes noted, no lesions or wounds seen Objective Data Vital Signs Vital Signs: Vital Signs - 24 hr 01/08/23 09:14 01/08/23 09:10 01/08/23 09:32 Temperature Pulse Rate 68 Respiratory Rate Blood Pressure Pulse Oximetry Oxygen Delivery Room Air Room Air Fraction of Inspired Oxygen 01/08/23 09:20 01/08/23 14:00 01/08/23 21:29 Temperature 96.5 F L 98.3 F Pulse Rate 63 80 Respiratory Rate 14 16 Blood Pressure 153/83 H 132/96 H Pulse Oximetry 98 100 Oxygen Delivery Room Air Fraction of Inspired Oxygen 01/08/23 20:00 01/09/23 05:32 Temperature 97.4 F L Pulse Rate 80 74 Respiratory Rate 16 18 Blood Pressure 146/81 H Pulse Oximetry 100 98 Oxygen Delivery Room Air Fraction of Inspired Oxygen 28 Intake/Output Intake/Output: Intake & Output 01/06/23 01/07/23 01/08/23 01/09/23 23:59 23:59 23:59 23:59 Intake Total 2440 1530 630 120 Output Total 600 2600 1900 600 Balance 1840 -5840 -1270 -480 Meds/Results Medications: Active Medications Generic Name Dose Route Start Last Admin Trade Name Catrina PRN Reason Stop Dose Admin Amlodipine Besylate 5 mg 01/06/23 09:00 01/08/23 09:16 Amlodipine Besylate 5 Mg Tablet PO 5 mg DAILY CHINO Administration Atenolol 50 mg 01/06/23
[2023-01-09 09:13] LABS: Basophils Absolute Auto 0.1 K/mm3 (0.0-0.1); Basophils Percent Auto 0.8 % (0.2-1.2); Eosinophils Absolute Auto 0.3 K/mm3 (0-0.3); Eosinophils Percent Auto 3.5 % (0-4.4); Hematocrit 42.7 % (42.0-52.0); Hemoglobin 13.5 g/dL (14.0-18.0); Immature Granulocyte Absolute 0.04 K/mm3 (0.00-0.031); Immature Granulocyte Percent A 0.5 % (0-0.5); Lymphocytes Absolute Auto 1.55 K/mm3 (0.9-3.2); Lymphocytes Percent Auto 21.1 % (18.3-44.2); Mean Corpuscular HGB Conc 31.6 g/dl (32-36); Mean Corpuscular Hemoglobin 29.7 pg (26-34); Mean Corpuscular Volume 94.1 fl (80-100); Mean Platelet Volume 9.7 fl (7.4-10.4); Monocytes Absolute Auto 0.7 K/mm3 (0.1-0.6); Monocytes Percent Auto 9.5 % (2.6-8.5); Neutrophils Absolute Auto 4.7 K/mm3 (1.3-6.7); Neutrophils Percent Auto 64.6 % (45.5-73.1); Platelet Count Result 429 k/mm3 (150-375); Red Blood Count 4.54 M/mm3 (4.6-6.20); Red Cell Distribution Width 16.2 % (11.5-14.5); White Blood Count 7.3 K/mm3 (4.5-10.0)
[2023-01-09 09:22] LABS: Alanine Aminotransferase 21 U/L (6-50); Albumin Level 3.9 g/dL (3.5-5.1); Alkaline Phosphatase 121 U/L (38-126); Anion Gap 12 mmol/L (8-16); Aspartate Amino Transferase 22 U/L (17-59); Bilirubin,Total 0.5 mg/dL (0.2-1.3); Blood Urea Nitrogen 32 mg/dL (9-20); Carbon Dioxide 21 mmol/L (22-30); Chloride 110 mmol/L (98-107); Estimated CRCL calculation 56 ml/min; Estimated Glomerular Filt Rate 48; Glucose 144 mg/dL (65-110); Potassium 4.3 mmol/L (3.4-5.0); Sodium 143 mmol/L (137-145)
[2023-01-09 10:13] VITALS: BP 134/77; PULSE 89; RESP 16; O2SAT 99
[2023-01-09] MEDS: polyethylene glycoL 3350 17 GM POWD.PACK PO (10:14)
[2023-01-09] MEDS: ENOXAPARIN 40 MG/0.4 ML SYRINGE SUB-Q (10:15)
[2023-01-09] MEDS: amLODIPine BESYLATE 5 MG TABLET PO (10:16)
[2023-01-09] MEDS: ATORVASTATIN 10 MG TABLET PO (10:16)
[2023-01-09] MEDS: atenoloL 50 MG TABLET PO (10:16)
[2023-01-09] MEDS: BACLOFEN 10 MG TABLET 20 MG PO ×3 (10:17→18:19)
[2023-01-09] MEDS: buPROPion HCL XL (24 HR) 150 MG TABCR 300 MG PO (10:17)
[2023-01-09] MEDS: SENNA/DOCUSATE SODIUM TABLET 1 TAB PO ×2 (10:17→18:19)
[2023-01-09] MEDS: EMPAGLIFLOZIN 10 MG TABLET PO (10:18)
[2023-01-09] MEDS: TAMSULOSIN HCL 0.4 MG CAPSULE PO (10:18)
[2023-01-09] MEDS: INSULIN GLARGINE (*BKC) 100 UNITS/ML 12 UNITS SUB-Q ×2 (10:21→20:53)
[2023-01-09 11:32] LABS: Glucose Point of Care 172 mg/dl (65-105)
--- NOTE | 2023-01-09 12:47 | WPDNEURCNPN ---
Assessment and Plan Assessment and plan (1) Multiple sclerosis: Code(s): G35 - Multiple sclerosis Status: Acute Plan ongoing diagnosis of demyelinating disease for which he is under the care of Dr. Elkin Dolan in [place] and at present taking the symptom 20 mg subcu monthly. As for the neuro treatment is concerned he can follow up with the physician in [place] and the medical care can be taken care here Consult date: 01/09/23 HPI: Richard Gtz is a 62 year old male admitted to the hospital through the emergency room where he was brought by the EMS with the complaints of change in the mental status and with the history of underlying 1. Diabetes mellitus 2. Chronic renal disease 3. Multiple sclerosis 4. Wheelchair-bound status. On initial eval in the emergency room he was awake alert oriented x4 but subsequently became somewhat confused agitated patient had recently been admitted to [facility] for UTI and was started on Levaquin and Bactrim for 7 day course though reportedly he has been known compliant with antibiotic treatment and also with the diabetic treatment his multiple medications were as outlined which included baclofen 10 mg to20mg 3 times a day Wellbutrin 300 mg daily insulin accordingly and tramadol 50 mg q.4-6 hours and p.r.n. and I personally talked to him today he mentioned that he has been under the care of Dr. Jarrett Dolan for demyelinating disease in [facility] though at present is disable he lives his and has 2 adult children and is a retired teacher by profession does not smoke and does not drink initial vital signs were normal so as the routine lab except the CBC showed a leukocytosis and the BMP with 47 of BUN creatinine of 2.20 and blood sugar of 188. His MRI of the brain has been done which documented nonspecific white matter disease compatible with chronic small vessel ischemic disease PMF Past Medical History Medical History Chronic renal failure, stage 3 (moderate) DM2 (diabetes mellitus, type 2) Essential hypertension Hyperlipidemia Multiple sclerosis Surgical History Surgical History H/O wrist surgery Family History Family History Mother Diabetes mellitus Father Cerebrovascular accident Other Hypertension Social History Social History Social History: He is disabled and lives with his and has adult 2 children. 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 He does not use any alcohol or marijuana. His is the durable power sorority mother for healthcare. Code status: Full code Smoking status: Never smoker Second hand tobacco smoke exposure: No Alcohol intake: never Substance use: never Substance use type: does not use Lack of Transportation: No Lack of Food: Never True Current Housing: I Have Housing Concerned About Future Housing: No Difficulty Paying Gas/Electric Bills: No Difficulty Paying for Meds: No Currently Unemployed: No Education: Bachelor's Degree Difficulty w/ Childcare or Family Care: No Spiritual care concerns: No Meds Home Medications and Allergies Home Medications Medication Instructions Recorded Confirmed Type atenolol 50 mg tablet 50 mg PO DAILY 11/11/22 01/06/23 History atorvastatin 10 mg tablet 10 mg PO DAILY 11/11/22 01/06/23 History baclofen 10 mg tablet 10 - 20 mg PO TID 11/11/22 01/06/23 History bupropion HCl 300 mg 24 hr tablet, 300 mg PO DAILY 11/11/22 01/06/23 History extended release empagliflozin 10 mg tablet 10 mg PO DAILY 11/11/22 01/06/23 History (Jardiance) ofatumumab 20 mg/0.4 mL 20 mg subcut MONTHLY 11/11/22 01/06/23 History subcutaneous pen injector (Kesimpta Pen) acetaminophen 325 mg tablet 650 mg PO Q6H PRN Pain (Scale 01/06/23 03
--- NOTE | 2023-01-09 13:39 | WPDURCON ---
Assessment and Plan Assessment and plan (1) Altered mental status: Qualifiers: Altered mental status type: unspecified Qualified Code(s): R41.82 - Altered mental status, unspecified Code(s): R41.82 - Altered mental status, unspecified Status: Acute (2) Urinary retention: Code(s): R33.9 - Retention of urine, unspecified Status: Acute (3) Multiple sclerosis: Code(s): G35 - Multiple sclerosis Status: Acute Plan 62-year-old gentleman with multiple sclerosis and urinary retention. Acute on chronic Renal insufficiency improved with Salas catheter drainage -continue Flomax -continue Salas catheter. - Reassess voiding abilities once his acute processes and mental status changes have improved. Patient may benefit from long-term indwelling Salas catheter with monthly changes or intermittent catheterization. Urology Consult Note HPI Date Seen: 01/09/23 Requesting Physician: Jayla Fuchs DO Primary Care Provider: Snehal Hogan, DO Consult Narrative Narrative: Richard Gtz is a 62 year old male with past medical history multiple sclerosis/Wheelchair-bound, chronic kidney disease stage 3, morbid obesity, essential hypertension, type 2 diabetes mellitus and recurrent urinary tract infections who presented to the ER via EMS from home due to altered mental status. Patient has been admitted to the hospital since January 05, 2023. He had improvement of his renal function with Salas catheter drainage. The patient had Salas removed yesterday and unable to void. Nursing staff states they replaced Salas catheter this morning with return over 600mL of urine. [facility] Past Medical History Medical History Chronic renal failure, stage 3 (moderate) DM2 (diabetes mellitus, type 2) Essential hypertension Hyperlipidemia Multiple sclerosis Surgical History Surgical History H/O wrist surgery Family History Family History Mother Diabetes mellitus Father Cerebrovascular accident Other Hypertension Social History Social History Social History: He is disabled and lives with his and has adult 2 children. 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 He does not use any alcohol or marijuana. His is the durable power public health training assistant for healthcare. Code status: Full code Smoking status: Never smoker Second hand tobacco smoke exposure: No Alcohol intake: never Substance use: never Substance use type: does not use Lack of Transportation: No Lack of Food: Never True Current Housing: I Have Housing Concerned About Future Housing: No Difficulty Paying Gas/Electric Bills: No Difficulty Paying for Meds: No Currently Unemployed: No Education: Bachelor's Degree Difficulty w/ Childcare or Family Care: No Spiritual care concerns: No Meds Home Medications and Allergies Home Medications Medication Instructions Recorded Confirmed Type atenolol 50 mg tablet 50 mg PO DAILY 11/11/22 01/06/23 History atorvastatin 10 mg tablet 10 mg PO DAILY 11/11/22 01/06/23 History baclofen 10 mg tablet 10 - 20 mg PO TID 11/11/22 01/06/23 History bupropion HCl 300 mg 24 hr tablet, 300 mg PO DAILY 11/11/22 01/06/23 History extended release empagliflozin 10 mg tablet 10 mg PO DAILY 11/11/22 01/06/23 History (Jardiance) ofatumumab 20 mg/0.4 mL 20 mg subcut MONTHLY 11/11/22 01/06/23 History subcutaneous pen injector (Kesimpta Pen) acetaminophen 325 mg tablet 650 mg PO Q6H PRN Pain (Scale 01/06/23 01/06/23 History Score 1-3) amlodipine 5 mg tablet 5 mg PO DAILY 01/06/23 01/06/23 History cholecalciferol (vitamin D3) 125 125 mcg PO DAILY 01/06/23 01/06/23 History mcg (5,000 unit) tablet (Vitamin D3) cyclobenzaprine 5
[2023-01-09 14:00] VITALS: BP 135/61; PULSE 62; RESP 12; TEMP 35.9; O2SAT 99
[2023-01-09 16:53] LABS: Glucose Point of Care 191 mg/dl (65-105)
[2023-01-09] MEDS: HYDROmorphone HCL INJ (*CRX) 1 MG/ML SYR 0.5 MG IV PUSH ×2 (19:11→23:52)
[2023-01-09 20:00] VITALS: PULSE 62; RESP 12; O2SAT 99
[2023-01-09] MEDS: TIZANIDINE HCL 4 MG TABLET PO (20:56)
[2023-01-09 21:18] LABS: Glucose Point of Care 230 mg/dl (65-105)
[2023-01-09 22:00] VITALS: BP 142/75; PULSE 66; RESP 16; TEMP 35.8; O2SAT 98
--- NOTE | 2023-01-09 23:30 | PC.NURSE ---
SPoke with Anum Gardner PATTERNMAKER APPRENTICE METAL at this time about patient cont to c/o flank pain. New order for dilaudid 0.5 mg IVP once now
[2023-01-10] VITALS (7 sets, daily range): BP systolic 105–141; BP diastolic 57–70; PULSE 74–91; RESP 16–21; TEMP 35.8–36.3; O2SAT 95–96; BMI 10.0
[2023-01-10] MEDS: PANTOPRAZOLE 40 MG TABLET PO ×2 (05:41→17:23)
[2023-01-10] MEDS: SUCRALFATE 1 GM TABLET PO ×3 (05:41→17:22)
[2023-01-10 07:32] LABS: Basophils Absolute Auto 0.1 K/mm3 (0.0-0.1); Basophils Percent Auto 0.8 % (0.2-1.2); Eosinophils Absolute Auto 0.3 K/mm3 (0-0.3); Hematocrit 37.8 % (42.0-52.0); Hemoglobin 11.9 g/dL (14.0-18.0); Immature Granulocyte Absolute 0.04 K/mm3 (0.00-0.031); Immature Granulocyte Percent A 0.4 % (0-0.5); Lymphocytes Percent Auto 15.7 % (18.3-44.2); Mean Corpuscular HGB Conc 31.5 g/dl (32-36); Mean Corpuscular Hemoglobin 30.1 pg (26-34); Mean Corpuscular Volume 95.5 fl (80-100); Mean Platelet Volume 10.5 fl (7.4-10.4); Monocytes Absolute Auto 0.9 K/mm3 (0.1-0.6); Monocytes Percent Auto 9.8 % (2.6-8.5); Neutrophils Absolute Auto 6.2 K/mm3 (1.3-6.7); Neutrophils Percent Auto 70.3 % (45.5-73.1); Platelet Count Result 392 k/mm3 (150-375); Red Blood Count 3.96 M/mm3 (4.6-6.20); White Blood Count 8.9 K/mm3 (4.5-10.0)
[2023-01-10 07:50] LABS: Alanine Aminotransferase 20 U/L (6-50); Albumin Level 3.3 g/dL (3.5-5.1); Alkaline Phosphatase 120 U/L (38-126); Anion Gap 9 mmol/L (8-16); Aspartate Amino Transferase 20 U/L (17-59); Bilirubin,Total 0.5 mg/dL (0.2-1.3); Blood Urea Nitrogen 35 mg/dL (9-20); Calcium 9.2 mg/dL (8.4-10.2); Carbon Dioxide 19 mmol/L (22-30); Chloride 108 mmol/L (98-107); Estimated CRCL calculation 64 ml/min; Estimated Glomerular Filt Rate 56; Glucose 244 mg/dL (65-110); Potassium 4.3 mmol/L (3.4-5.0); Sodium 136 mmol/L (137-145)
[2023-01-10 07:52] LABS: Glucose Point of Care 206 mg/dl (65-105)
[2023-01-10] MEDS: traMADol HCL (*CRX) 50 MG TABLET PO (08:48)
[2023-01-10] MEDS: atenoloL 50 MG TABLET PO (08:49)
[2023-01-10] MEDS: buPROPion HCL XL (24 HR) 150 MG TABCR 300 MG PO (08:49)
[2023-01-10] MEDS: ENOXAPARIN 40 MG/0.4 ML SYRINGE SUB-Q (08:49)
[2023-01-10] MEDS: ATORVASTATIN 10 MG TABLET PO (08:49)
[2023-01-10] MEDS: polyethylene glycoL 3350 17 GM POWD.PACK PO (08:49)
[2023-01-10] MEDS: SENNA/DOCUSATE SODIUM TABLET 1 TAB PO ×2 (08:49→17:22)
[2023-01-10] MEDS: EMPAGLIFLOZIN 10 MG TABLET PO (08:51)
[2023-01-10] MEDS: amLODIPine BESYLATE 5 MG TABLET PO (08:51)
[2023-01-10] MEDS: TAMSULOSIN HCL 0.4 MG CAPSULE PO (08:51)
[2023-01-10] MEDS: BACLOFEN 10 MG TABLET 20 MG PO ×3 (08:51→17:21)
[2023-01-10] MEDS: INSULIN ASPART (*BKC) 100 UNITS/ML SUB-Q ×3 (08:52→17:23)
[2023-01-10] MEDS: INSULIN GLARGINE (*BKC) 100 UNITS/ML 12 UNITS SUB-Q ×2 (08:52→22:21)
[2023-01-10 11:27] LABS: Glucose Point of Care 327 mg/dl (65-105)
--- NOTE | 2023-01-10 11:38 | PCNFU ---
Nutrition Follow-Up Complete: Severe malnutrition related to inadequate protein-energy intake in the setting of chronic disease as evidenced by minimal oral intake for greater than 1 month, significant weight loss of -15% in 1 month. goal: PO intake 50% or greater of meals and supplements Patient is progressing towards goal. We will continue current goal. Pt current nutrition is DBCC with Ensure compact TID and Nutritional Ice Cream BID. Last recorded weight is 112.7 kg. Bowel Motility: No Bm reported. Labs Reviewed: Glu 244, GFR 56, Hct 37.8,Hgb 11.9 Meds Noted:Miralax, Protonix, NovoLog, Lantus, Lovenox Skin: Maceration to buttock Additional Notes: Nutrition follow up. Patient is a feeder, eating about 50% of meal for breakfast: drank 2 ensure compacts and croatian toast. Overall all intakes improving 50,60% of meals. Agree with orders. Monitor intake, tolerance, wt, labs. Follow up in 5 days.
--- NOTE | 2023-01-10 13:37 | PM.DS ---
DS: Admitting Diagnosis Discharge Date 01/15/23 Admitting Diagnosis Altered mental status DS: Discharge Diagnosis Discharge Diagnosis (1) Type 2 diabetes mellitus with hyperglycemia: Qualifiers: Diabetes mellitus intermediate project manager insulin use: with intermediate project manager use Qualified Code(s): E11.65 - Type 2 diabetes mellitus with hyperglycemia; Z79.4 - [facility] (current) use of insulin Code(s): E11.65 - Type 2 diabetes mellitus with hyperglycemia Status: Acute (2) Altered mental status: Qualifiers: Altered mental status type: unspecified Qualified Code(s): R41.82 - Altered mental status, unspecified Code(s): R41.82 - Altered mental status, unspecified Status: Acute (3) Acute kidney injury: Code(s): N17.9 - Acute kidney failure, unspecified Status: Acute (4) Urinary retention: Code(s): R33.9 - Retention of urine, unspecified Status: Acute Plan 62-year-old male with past medical history multiple sclerosis/Wheelchair-bound, chronic kidney disease stage 3, morbid obesity, essential hypertension, type 2 diabetes mellitus and recurrent urinary tract infections who presented to the ER via EMS from home due to altered mental status. 1)Acute Encephalopathy: resolving, multifactorial, recurrent, likely MS flares? CT head unremarkable MRI brain unremarkable Follows up with Dr Dolan in [facility] for possible MS obtain records from Dr Dolan's office along with last MRI Neurology consult recommends cont current treatment, d/c and f/u outpatient with MoBap 2)ELVA on Pre existing CKD stage 3B Renal USG unremarkable Kidney function has improved, c/w epps C/w flomax 3)Right Hip pain: No fracture Pt/OT 4)Diabetes mellitus: BG check TID AC and HS c/w lantus+SS Adjust dose as needed 5)Urinary retention: renal US essentially WNL place peps consult urology 6)DVT ppx:Lovenox 7)Code:Full 8)Dispo: stable for d/c today, SNF pending insurance auth DS: Summary Hospital Course Hospital Course: 62-year-old male with multiple sclerosis, wheelchair-bound, chronic kidney disease, diabetes is as well as recurrent UTIs is presenting from home with altered mental status. Family reports a waxing and waning course of episodes and spells since the patient has had COVID where he has moments where he somnolent confused. The seemed to resolve on their own without significant etiology found. He is seen by Neurology at [facility] for his multiple sclerosis. In the ER, he was found to have acute kidney injury as well as urinary retention. Epps was placed and Urology was consulted. They recommended keeping the Epps in place in the will follow-up in the office for his recurrent retention as they think this is contributing to his recurrent UTIs. Urine culture during this admission did not show any bacterial growth therefore antibiotics were not continued. His encephalopathy completely resolved. Care coordination arranged to safe discharge. See above, med rec and care coordination reports for details. Time Spent with Patient Time attestation: Total time spent providing and/or coordinating discharge services: Exam Narrative: General: No acute distress, alert and oriented per baseline HEENT: Atraumatic, normocephalic, mucous membranes moist CV: Regular rate and rhythm, S1, S2 Lungs: Clear to auscultation bilaterally, no rales or crackles noted, no wheezes, good air entry Abdomen: Soft, nontender, nondistended Extremities: Normal to inspection Skin: No rashes noted, no lesions or wounds seen DS: Data Data Completed and Pending Labs on day of discharge: Labs from last 24 hours 01/10/23 01/10/23 01/10/23 11:24 07:41 07:07 WBC RBC Hgb Hct MCV MCH MCHC RDW Plt Count MPV Immature Gran % (Auto) Neut % (Auto) Lymph % (Auto) [place] % (Auto) Eos % (Auto) Baso % (Auto) Lymph # (Auto) [place] # (A
[2023-01-10 16:13] LABS: Glucose Point of Care 227 mg/dl (65-105)
--- NOTE | 2023-01-10 17:55 | PM.IMPN ---
Progress Note: A&P Assessment and Plan (1) Type 2 diabetes mellitus with hyperglycemia: Qualifiers: Diabetes mellitus long distance operator insulin use: with long distance operator use Qualified Code(s): E11.65 - Type 2 diabetes mellitus with hyperglycemia; Z79.4 - nursing home (current) use of insulin Code(s): E11.65 - Type 2 diabetes mellitus with hyperglycemia Status: Acute (2) Altered mental status: Qualifiers: Altered mental status type: unspecified Qualified Code(s): R41.82 - Altered mental status, unspecified Code(s): R41.82 - Altered mental status, unspecified Status: Acute (3) Acute kidney injury: Code(s): N17.9 - Acute kidney failure, unspecified Status: Acute (4) Urinary retention: Code(s): R33.9 - Retention of urine, unspecified Status: Acute Plan 62-year-old male with past medical history multiple sclerosis/Wheelchair-bound, chronic kidney disease stage 3, morbid obesity, essential hypertension, type 2 diabetes mellitus and recurrent urinary tract infections who presented to the ER via EMS from home due to altered mental status. 1)Acute Encephalopathy: resolving, multifactorial, recurrent, likely MS flares? CT head unremarkable MRI brain unremarkable Follows up with Dr Dolan in [facility] for possible MS obtain records from Dr Dolan's office along with last MRI Neurology consult recommends cont current treatment, d/c and f/u outpatient with MoBap 2)ELVA on Pre existing CKD stage 3B Renal USG unremarkable Kidney function has improved, c/w epps C/w flomax 3)Right Hip pain: No fracture Pt/OT 4)Diabetes mellitus: BG check TID AC and HS c/w lantus+SS Adjust dose as needed 5)Urinary retention: renal US essentially WNL place epps consult urology 6)DVT ppx:Lovenox 7)Code:Full 8)Dispo: stable for d/c today, SNF pending insurance auth Subjective Date/time seen: 01/10/23 17:55 Interval history: No overnight events noted. No chest pain or shortness of breath. No nausea, vomiting or diarrhea. No fevers or chills. Review of Systems Review of Systems: 12 point review of systems was assessed and was negative except as noted in the HPI Exam Narrative: General: No acute distress, alert and oriented per baseline HEENT: Atraumatic, normocephalic, mucous membranes moist CV: Regular rate and rhythm, S1, S2 Lungs: Clear to auscultation bilaterally, no rales or crackles noted, no wheezes, good air entry Abdomen: Soft, nontender, nondistended Extremities: Normal to inspection Skin: No rashes noted, no lesions or wounds seen Objective Data Vital Signs Vital Signs: Vital Signs - 24 hr 01/09/23 20:00 01/09/23 22:00 01/10/23 06:00 Temperature 96.4 F L 97.3 F L Pulse Rate 62 66 74 Respiratory Rate 12 16 16 Blood Pressure 142/75 H 141/70 H Pulse Oximetry 99 98 96 Oxygen Delivery Room Air Fraction of Inspired Oxygen 28 01/10/23 08:49 01/10/23 09:08 01/10/23 14:00 Temperature 96.4 F L Pulse Rate 91 85 78 Respiratory Rate 20 21 H Blood Pressure 105/57 L Pulse Oximetry 96 95 Oxygen Delivery Room Air Fraction of Inspired Oxygen 21 01/10/23 08:40 Temperature Pulse Rate 78 Respiratory Rate 21 H Blood Pressure Pulse Oximetry 95 Oxygen Delivery Room Air Fraction of Inspired Oxygen 21 Intake/Output Intake/Output: Intake & Output 01/07/23 01/08/23 01/09/23 01/10/23 23:59 23:59 23:59 23:59 Intake Total 5273 887 4234 825 Output Total 2600 1900 1535 875 Balance -1070 -7290 23 -50 Meds/Results Medications: Active Medications Generic Name Dose Route Start Last Admin Trade Name Freq PRN Reason Stop Dose Admin Amlodipine Besylate 5 mg 01/06/23 09:00 01/10/23 08:51 Amlodipine Besylate 5 Mg Tablet PO 5 mg DAILY CHINO Administration Atenolol 50 mg 01/06/23 09:00 01/10/23 08:49 Atenolol 50 Mg Tablet PO 50 mg DAILY CHINO Administration Atorvastatin Calcium 1
[2023-01-10 22:19] LABS: Glucose Point of Care 416 mg/dl (65-105)
[2023-01-10] MEDS: TIZANIDINE HCL 4 MG TABLET PO (22:22)
[2023-01-11] MEDS: SUCRALFATE 1 GM TABLET PO ×3 (05:33→17:23)
[2023-01-11] MEDS: PANTOPRAZOLE 40 MG TABLET PO ×2 (05:33→17:23)
[2023-01-11 06:00] VITALS: BP 129/74; PULSE 126; RESP 18; TEMP 36.6; O2SAT 94
[2023-01-11 06:22] VITALS: O2SAT 96
[2023-01-11 06:36] LABS: Basophils Absolute Auto 0.1 K/mm3 (0.0-0.1); Basophils Percent Auto 0.7 % (0.2-1.2); Eosinophils Absolute Auto 0.1 K/mm3 (0-0.3); Eosinophils Percent Auto 1.3 % (0-4.4); Hematocrit 41.3 % (42.0-52.0); Hemoglobin 12.7 g/dL (14.0-18.0); Immature Granulocyte Absolute 0.06 K/mm3 (0.00-0.031); Immature Granulocyte Percent A 0.7 % (0-0.5); Lymphocytes Absolute Auto 1.35 K/mm3 (0.9-3.2); Lymphocytes Percent Auto 15.2 % (18.3-44.2); Mean Corpuscular HGB Conc 30.8 g/dl (32-36); Mean Corpuscular Hemoglobin 30.1 pg (26-34); Mean Corpuscular Volume 97.9 fl (80-100); Mean Platelet Volume 10.5 fl (7.4-10.4); Monocytes Absolute Auto 0.9 K/mm3 (0.1-0.6); Neutrophils Absolute Auto 6.4 K/mm3 (1.3-6.7); Neutrophils Percent Auto 72.1 % (45.5-73.1); Platelet Count Result 360 k/mm3 (150-375); Red Blood Count 4.22 M/mm3 (4.6-6.20); Red Cell Distribution Width 16.5 % (11.5-14.5); White Blood Count 8.9 K/mm3 (4.5-10.0)
[2023-01-11 07:06] LABS: Alanine Aminotransferase 19 U/L (6-50); Albumin Level 3.3 g/dL (3.5-5.1); Alkaline Phosphatase 125 U/L (38-126); Anion Gap 11 mmol/L (8-16); Aspartate Amino Transferase 18 U/L (17-59); Bilirubin,Total 0.5 mg/dL (0.2-1.3); Blood Urea Nitrogen 41 mg/dL (9-20); Calcium 9.6 mg/dL (8.4-10.2); Carbon Dioxide 18 mmol/L (22-30); Chloride 109 mmol/L (98-107); Estimated CRCL calculation 56 ml/min; Estimated Glomerular Filt Rate 48; Glucose 296 mg/dL (65-110); Potassium 4.8 mmol/L (3.4-5.0); Sodium 138 mmol/L (137-145)
[2023-01-11 08:27] LABS: Glucose Point of Care 285 mg/dl (65-105)
[2023-01-11] MEDS: amLODIPine BESYLATE 5 MG TABLET PO (09:04)
[2023-01-11] MEDS: ATORVASTATIN 10 MG TABLET PO (09:04)
[2023-01-11] MEDS: BACLOFEN 10 MG TABLET 20 MG PO ×3 (09:04→17:23)
[2023-01-11] MEDS: atenoloL 50 MG TABLET PO (09:04)
[2023-01-11] MEDS: buPROPion HCL XL (24 HR) 150 MG TABCR 300 MG PO (09:04)
[2023-01-11] MEDS: INSULIN ASPART (*BKC) 100 UNITS/ML SUB-Q ×3 (09:05→17:23)
[2023-01-11] MEDS: TAMSULOSIN HCL 0.4 MG CAPSULE PO (09:05)
[2023-01-11] MEDS: SENNA/DOCUSATE SODIUM TABLET 1 TAB PO (09:05)
[2023-01-11] MEDS: EMPAGLIFLOZIN 10 MG TABLET PO (09:05)
[2023-01-11] MEDS: ENOXAPARIN 40 MG/0.4 ML SYRINGE SUB-Q (09:06)
[2023-01-11] MEDS: INSULIN GLARGINE (*BKC) 100 UNITS/ML 12 UNITS SUB-Q ×2 (09:06→22:27)
[2023-01-11] MEDS: polyethylene glycoL 3350 17 GM POWD.PACK PO (09:07)
[2023-01-11 11:59] LABS: Glucose Point of Care 362 mg/dl (65-105)
[2023-01-11 14:00] VITALS: BP 123/76; PULSE 78; RESP 16; TEMP 36.2; O2SAT 98
--- NOTE | 2023-01-11 16:17 | PM.IMPN ---
Progress Note: A&P Assessment and Plan (1) Type 2 diabetes mellitus with hyperglycemia: Qualifiers: Diabetes mellitus termite exterminator insulin use: with termite exterminator use Qualified Code(s): E11.65 - Type 2 diabetes mellitus with hyperglycemia; Z79.4 - [facility] Code(s): E11.65 - Type 2 diabetes mellitus with hyperglycemia Status: Acute (2) Altered mental status: Qualifiers: Altered mental status type: unspecified Qualified Code(s): R41.82 - Altered mental status, unspecified Code(s): R41.82 - Altered mental status, unspecified Status: Acute (3) Acute kidney injury: Code(s): N17.9 - Acute kidney failure, unspecified Status: Acute (4) Urinary retention: Code(s): R33.9 - Retention of urine, unspecified Status: Acute Plan 62-year-old male with past medical history multiple sclerosis/Wheelchair-bound, chronic kidney disease stage 3, morbid obesity, essential hypertension, type 2 diabetes mellitus and recurrent urinary tract infections who presented to the ER via EMS from home due to altered mental status. 1)Acute Encephalopathy: resolving, multifactorial, recurrent, likely MS flares? CT head unremarkable MRI brain unremarkable Follows up with Dr Dolan in [facility] for possible MS obtain records from Dr Dolan's office along with last MRI Neurology consult recommends cont current treatment, d/c and f/u outpatient with MoBap 2)ELVA on Pre existing CKD stage 3B Renal USG unremarkable Kidney function has improved, c/w epps C/w flomax 3)Right Hip pain: No fracture Pt/OT 4)Diabetes mellitus: BG check TID AC and HS c/w lantus+SS Adjust dose as needed 5)Urinary retention: renal US essentially WNL place epps consult urology 6)DVT ppx:Lovenox 7)Code:Full 8)Dispo: stable for d/c today, SNF pending insurance auth Subjective Date/time seen: 01/11/23 16:17 Interval history: No overnight events noted. No chest pain or shortness of breath. No nausea, vomiting or diarrhea. No fevers or chills. Patient is hoping to go home with home healthcare. Review of Systems Review of Systems: 12 point review of systems was assessed and was negative except as noted in the HPI Exam Narrative: General: No acute distress, alert and oriented per baseline HEENT: Atraumatic, normocephalic, mucous membranes moist CV: Regular rate and rhythm, S1, S2 Lungs: Clear to auscultation bilaterally, no rales or crackles noted, no wheezes, good air entry Abdomen: Soft, nontender, nondistended Extremities: Normal to inspection Skin: No rashes noted, no lesions or wounds seen Objective Data Vital Signs Vital Signs: Vital Signs - 24 hr 01/10/23 22:00 01/10/23 20:00 01/11/23 06:22 Temperature 97.1 F L Pulse Rate 86 86 Respiratory Rate 18 18 Blood Pressure 109/58 L Pulse Oximetry 96 96 96 Oxygen Delivery Room Air Room Air Fraction of Inspired Oxygen 21 01/11/23 06:00 01/11/23 09:00 Temperature 97.9 F Pulse Rate 126 H Respiratory Rate 18 Blood Pressure 129/74 Pulse Oximetry 94 Oxygen Delivery Room Air Fraction of Inspired Oxygen Intake/Output Intake/Output: Intake & Output 01/08/23 01/09/23 01/10/23 01/11/23 23:59 23:59 23:59 23:59 Intake Total 630 1558 1065 485 Output Total 1900 1535 1725 750 Balance -1270 23 -660 -265 Meds/Results Medications: Active Medications Generic Name Dose Route Start Last Admin Trade Name Keenanq PRN Reason Stop Dose Admin Amlodipine Besylate 5 mg 01/06/23 09:00 01/11/23 09:04 Amlodipine Besylate 5 Mg Tablet PO 5 mg DAILY CHINO Administration Atenolol 50 mg 01/06/23 09:00 01/11/23 09:04 Atenolol 50 Mg Tablet PO 50 mg DAILY CHINO Administration Atorvastatin Calcium 10 mg 01/06/23 09:00 01/11/23 09:04 Atorvastatin 10 Mg Tablet PO 10 mg DAILY CHINO Administration Baclofen 20 mg 01/06/23 09:00 01/11/23 11:54 Bacl
[2023-01-11 17:56] LABS: Glucose Point of Care 278 mg/dl (65-105)
[2023-01-11] MEDS: TIZANIDINE HCL 4 MG TABLET PO (20:57)
[2023-01-11] MEDS: traMADol HCL (*CRX) 50 MG TABLET PO (20:59)
[2023-01-11 22:00] VITALS: BP 118/59; PULSE 74; RESP 20; TEMP 36.1; O2SAT 93
[2023-01-11 22:22] LABS: Glucose Point of Care 255 mg/dl (65-105)
[2023-01-12 06:00] VITALS: BP 139/73; PULSE 69; RESP 18; TEMP 35.9; O2SAT 98
[2023-01-12 06:19] LABS: Basophils Absolute Auto 0.1 K/mm3 (0.0-0.1); Basophils Percent Auto 0.7 % (0.2-1.2); Eosinophils Absolute Auto 0.2 K/mm3 (0-0.3); Eosinophils Percent Auto 1.4 % (0-4.4); Hematocrit 40.6 % (42.0-52.0); Hemoglobin 12.8 g/dL (14.0-18.0); Immature Granulocyte Absolute 0.06 K/mm3 (0.00-0.031); Immature Granulocyte Percent A 0.5 % (0-0.5); Lymphocytes Absolute Auto 1.33 K/mm3 (0.9-3.2); Lymphocytes Percent Auto 11.5 % (18.3-44.2); Mean Corpuscular HGB Conc 31.5 g/dl (32-36); Mean Corpuscular Volume 95.3 fl (80-100); Mean Platelet Volume 10.7 fl (7.4-10.4); Monocytes Absolute Auto 0.9 K/mm3 (0.1-0.6); Monocytes Percent Auto 7.9 % (2.6-8.5); Platelet Count Result 344 k/mm3 (150-375); Red Blood Count 4.26 M/mm3 (4.6-6.20); Red Cell Distribution Width 16.4 % (11.5-14.5); White Blood Count 11.6 K/mm3 (4.5-10.0)
[2023-01-12 06:31] LABS: Alanine Aminotransferase 19 U/L (6-50); Albumin Level 3.7 g/dL (3.5-5.1); Alkaline Phosphatase 126 U/L (38-126); Anion Gap 8 mmol/L (8-16); Aspartate Amino Transferase 20 U/L (17-59); Bilirubin,Total 0.5 mg/dL (0.2-1.3); Blood Urea Nitrogen 42 mg/dL (9-20); Calcium 9.9 mg/dL (8.4-10.2); Carbon Dioxide 20 mmol/L (22-30); Chloride 107 mmol/L (98-107); Estimated CRCL calculation 60 ml/min; Estimated Glomerular Filt Rate 52; Glucose 311 mg/dL (65-110); Potassium 4.5 mmol/L (3.4-5.0); Sodium 135 mmol/L (137-145)
[2023-01-12] MEDS: SUCRALFATE 1 GM TABLET PO ×3 (06:37→16:44)
[2023-01-12] MEDS: PANTOPRAZOLE 40 MG TABLET PO ×2 (06:37→16:44)
[2023-01-12 07:53] LABS: Glucose Point of Care 286 mg/dl (65-105)
[2023-01-12] MEDS: buPROPion HCL XL (24 HR) 150 MG TABCR 300 MG PO (08:48)
[2023-01-12] MEDS: TAMSULOSIN HCL 0.4 MG CAPSULE PO (08:48)
[2023-01-12] MEDS: INSULIN ASPART (*BKC) 100 UNITS/ML SUB-Q ×3 (08:48→16:44)
[2023-01-12] MEDS: INSULIN GLARGINE (*BKC) 100 UNITS/ML 12 UNITS SUB-Q ×2 (08:48→20:11)
[2023-01-12] MEDS: ENOXAPARIN 40 MG/0.4 ML SYRINGE SUB-Q (08:48)
[2023-01-12] MEDS: polyethylene glycoL 3350 17 GM POWD.PACK PO (08:48)
[2023-01-12] MEDS: SENNA/DOCUSATE SODIUM TABLET 1 TAB PO ×2 (08:48→16:44)
[2023-01-12 08:49] VITALS: PULSE 78
[2023-01-12] MEDS: EMPAGLIFLOZIN 10 MG TABLET PO (08:49)
[2023-01-12] MEDS: ATORVASTATIN 10 MG TABLET PO (08:49)
[2023-01-12] MEDS: BACLOFEN 10 MG TABLET 20 MG PO ×3 (08:49→16:44)
[2023-01-12] MEDS: amLODIPine BESYLATE 5 MG TABLET PO (08:49)
[2023-01-12] MEDS: atenoloL 50 MG TABLET PO (08:49)
[2023-01-12 09:00] VITALS: PULSE 74; RESP 16; O2SAT 99
[2023-01-12 11:40] LABS: Glucose Point of Care 338 mg/dl (65-105)
[2023-01-12] MEDS: traMADol HCL (*CRX) 50 MG TABLET PO (12:06)
[2023-01-12 14:00] VITALS: BP 125/76; PULSE 67; RESP 18; TEMP 36.3; O2SAT 96
--- NOTE | 2023-01-12 16:17 | PM.IMPN ---
Progress Note: A&P Assessment and Plan (1) Type 2 diabetes mellitus with hyperglycemia: Qualifiers: Diabetes mellitus extermination inspector insulin use: with extermination inspector use Qualified Code(s): E11.65 - Type 2 diabetes mellitus with hyperglycemia; Z79.4 - care home (current) use of insulin Code(s): E11.65 - Type 2 diabetes mellitus with hyperglycemia Status: Acute (2) Altered mental status: Qualifiers: Altered mental status type: unspecified Qualified Code(s): R41.82 - Altered mental status, unspecified Code(s): R41.82 - Altered mental status, unspecified Status: Acute (3) Acute kidney injury: Code(s): N17.9 - Acute kidney failure, unspecified Status: Acute (4) Urinary retention: Code(s): R33.9 - Retention of urine, unspecified Status: Acute Plan 62-year-old male with past medical history multiple sclerosis/Wheelchair-bound, chronic kidney disease stage 3, morbid obesity, essential hypertension, type 2 diabetes mellitus and recurrent urinary tract infections who presented to the ER via EMS from home due to altered mental status. Acute Encephalopathy: resolving, multifactorial, recurrent, likely MS flares? CT head unremarkable MRI brain unremarkable Follows up with Dr Dolan in [facility] for possible MS obtain records from Dr Dolan's office along with last MRI Neurology consult recommends cont current treatment, d/c and f/u outpatient with MoBap ELVA on Pre existing CKD stage 3B Renal USG unremarkable Kidney function has improved, c/w epps C/w flomax Right Hip pain: No fracture Pt/OT Diabetes mellitus: BG check TID AC and HS c/w lantus+SS Adjust dose as needed Urinary retention: renal US essentially WNL place epps consult urology DVT ppx:Lovenox Code:Full Dispo: stable for d/c, SNF pending insurance auth Subjective Date/time seen: 01/12/23 16:17 Interval history: No overnight events noted. No chest pain or shortness of breath. No nausea, vomiting or diarrhea. No fevers or chills. Patient is hoping to go home with home healthcare. Exam Narrative: General: No acute distress, alert and oriented per baseline HEENT: Atraumatic, normocephalic, mucous membranes moist CV: Regular rate and rhythm, S1, S2 Lungs: Clear to auscultation bilaterally, no rales or crackles noted, no wheezes, good air entry Abdomen: Soft, nontender, nondistended Extremities: Normal to inspection Skin: No rashes noted, no lesions or wounds seen Objective Data Vital Signs Vital Signs: Vital Signs - 24 hr 01/11/23 22:00 01/12/23 06:00 01/12/23 08:49 Temperature 97.0 F L 96.7 F L Pulse Rate 74 69 78 Respiratory Rate 20 18 Blood Pressure 118/59 L 139/73 Pulse Oximetry 93 98 Oxygen Delivery 01/12/23 09:00 01/12/23 09:00 01/12/23 14:00 Temperature 97.4 F L Pulse Rate 74 67 Respiratory Rate 16 18 Blood Pressure 125/76 Pulse Oximetry 99 96 Oxygen Delivery Room Air Room Air Intake/Output Intake/Output: Intake & Output 01/09/23 01/10/23 01/11/23 01/12/23 23:59 23:59 23:59 23:59 Intake Total 1558 1065 530 900 Output Total 1535 1725 1750 800 Balance 23 660 1220 100 Meds/Results Medications: Active Medications Generic Name Dose Route Start Last Admin Trade Name Freq PRN Reason Stop Dose Admin Amlodipine Besylate 5 mg 01/06/23 09:00 01/12/23 08:49 Amlodipine Besylate 5 Mg Tablet PO 5 mg DAILY CHINO Administration Atenolol 50 mg 01/06/23 09:00 01/12/23 08:49 Atenolol 50 Mg Tablet PO 50 mg DAILY CHINO Administration Atorvastatin Calcium 10 mg 01/06/23 09:00 01/12/23 08:49 Atorvastatin 10 Mg Tablet PO 10 mg DAILY CHINO Administration Baclofen 20 mg 01/06/23 09:00 01/12/23 12:04 Baclofen 10 Mg Tablet PO 20 mg TID CHINO Administration Bupropion HCl 300 mg 01/06/23 09:00 01/12/23 08:48 Bupropion Hcl Xl (24 Hr) 150 Mg Tabcr PO 300 mg DAILY [facility] Ad
[2023-01-12 16:40] LABS: Glucose Point of Care 213 mg/dl (65-105)
[2023-01-12] MEDS: TIZANIDINE HCL 4 MG TABLET PO (20:11)
[2023-01-12 21:01] LABS: Glucose Point of Care 213 mg/dl (65-105)
[2023-01-12 22:00] VITALS: BP 119/71; PULSE 64; RESP 20; TEMP 36.5; O2SAT 96
--- NOTE | 2023-01-13 03:04 | PC.NURSE ---
Daylight Savings Time For Daylight Savings Time Ending in the Fall - Clocks are moved back. For Daylight Savings Time Beginning in the Spring - Clocks are moved ahead. For [facility], the time of change occurs at 0200 hrs. Time is taken from the senior business broker. This entry on the patient's chart recognizes the change in time reflected during documentation. Example: 2 entries for vital signs may be charted for 0200 hrs.
[2023-01-13] MEDS: SUCRALFATE 1 GM TABLET PO ×3 (05:33→17:08)
[2023-01-13] MEDS: PANTOPRAZOLE 40 MG TABLET PO ×2 (05:33→17:08)
[2023-01-13 06:00] VITALS: BP 117/78; PULSE 64; RESP 18; TEMP 36.5; O2SAT 96
[2023-01-13 06:59] LABS: Basophils Absolute Auto 0.1 K/mm3 (0.0-0.1); Basophils Percent Auto 0.6 % (0.2-1.2); Eosinophils Absolute Auto 0.3 K/mm3 (0-0.3); Eosinophils Percent Auto 2.6 % (0-4.4); Hematocrit 39.6 % (42.0-52.0); Hemoglobin 12.4 g/dL (14.0-18.0); Immature Granulocyte Absolute 0.07 K/mm3 (0.00-0.031); Immature Granulocyte Percent A 0.7 % (0-0.5); Lymphocytes Absolute Auto 1.56 K/mm3 (0.9-3.2); Lymphocytes Percent Auto 14.9 % (18.3-44.2); Mean Corpuscular HGB Conc 31.3 g/dl (32-36); Mean Corpuscular Volume 95.7 fl (80-100); Mean Platelet Volume 11.3 fl (7.4-10.4); Monocytes Absolute Auto 0.9 K/mm3 (0.1-0.6); Monocytes Percent Auto 8.9 % (2.6-8.5); Neutrophils Absolute Auto 7.6 K/mm3 (1.3-6.7); Neutrophils Percent Auto 72.3 % (45.5-73.1); Platelet Count Result 355 k/mm3 (150-375); Red Blood Count 4.14 M/mm3 (4.6-6.20); Red Cell Distribution Width 16.2 % (11.5-14.5); White Blood Count 10.4 K/mm3 (4.5-10.0)
[2023-01-13 07:16] LABS: Alanine Aminotransferase 21 U/L (6-50); Albumin Level 3.6 g/dL (3.5-5.1); Alkaline Phosphatase 119 U/L (38-126); Anion Gap 9 mmol/L (8-16); Aspartate Amino Transferase 22 U/L (17-59); Bilirubin,Total 0.5 mg/dL (0.2-1.3); Blood Urea Nitrogen 41 mg/dL (9-20); Calcium 9.5 mg/dL (8.4-10.2); Carbon Dioxide 25 mmol/L (22-30); Chloride 103 mmol/L (98-107); Estimated CRCL calculation 56 ml/min; Estimated Glomerular Filt Rate 48; Glucose 248 mg/dL (65-110); Potassium 4.5 mmol/L (3.4-5.0); Sodium 137 mmol/L (137-145)
[2023-01-13 08:24] LABS: Glucose Point of Care 261 mg/dl (65-105)
[2023-01-13] MEDS: INSULIN ASPART (*BKC) 100 UNITS/ML SUB-Q ×3 (08:29→17:08)
[2023-01-13] MEDS: BACLOFEN 10 MG TABLET 20 MG PO ×3 (08:30→17:08)
[2023-01-13] MEDS: amLODIPine BESYLATE 5 MG TABLET PO (08:30)
[2023-01-13] MEDS: INSULIN GLARGINE (*BKC) 100 UNITS/ML 12 UNITS SUB-Q ×2 (08:30→20:58)
[2023-01-13] MEDS: ATORVASTATIN 10 MG TABLET PO (08:30)
[2023-01-13] MEDS: ENOXAPARIN 40 MG/0.4 ML SYRINGE SUB-Q (08:30)
[2023-01-13] MEDS: buPROPion HCL XL (24 HR) 150 MG TABCR 300 MG PO (08:30)
[2023-01-13] MEDS: TAMSULOSIN HCL 0.4 MG CAPSULE PO (08:30)
[2023-01-13 08:31] VITALS: PULSE 68
[2023-01-13] MEDS: SENNA/DOCUSATE SODIUM TABLET 1 TAB PO ×2 (08:31→17:08)
[2023-01-13] MEDS: atenoloL 50 MG TABLET PO (08:31)
[2023-01-13 11:59] LABS: Glucose Point of Care 233 mg/dl (65-105)
[2023-01-13] MEDS: EMPAGLIFLOZIN 10 MG TABLET PO (12:20)
--- NOTE | 2023-01-13 13:25 | PM.IMPN ---
Progress Note: A&P Assessment and Plan (1) Type 2 diabetes mellitus with hyperglycemia: Qualifiers: Diabetes mellitus local company intermodal truck driver insulin use: with local company intermodal truck driver use Qualified Code(s): E11.65 - Type 2 diabetes mellitus with hyperglycemia; Z79.4 - care home (current) use of insulin Code(s): E11.65 - Type 2 diabetes mellitus with hyperglycemia Status: Acute (2) Altered mental status: Qualifiers: Altered mental status type: unspecified Qualified Code(s): R41.82 - Altered mental status, unspecified Code(s): R41.82 - Altered mental status, unspecified Status: Acute (3) Acute kidney injury: Code(s): N17.9 - Acute kidney failure, unspecified Status: Acute (4) Urinary retention: Code(s): R33.9 - Retention of urine, unspecified Status: Acute Plan 62-year-old male with past medical history multiple sclerosis/Wheelchair-bound, chronic kidney disease stage 3, morbid obesity, essential hypertension, type 2 diabetes mellitus and recurrent urinary tract infections who presented to the ER via EMS from home due to altered mental status. Acute Encephalopathy: Resolved multifactorial, recurrent, likely MS flares? CT head unremarkable MRI brain unremarkable Follows up with Dr Dolan in [facility] for possible MS obtain records from Dr Dolan's office along with last MRI Neurology consult recommends cont current treatment, d/c and f/u outpatient with [facility]Bap ELVA on Pre existing CKD stage 3B Renal USG unremarkable Kidney function has improved, c/w epps C/w flomax Stable, creatinine 1.5 / Right Hip pain: No fracture Pt/OT Diabetes mellitus: BG check TID AC and HS c/w lantus+SS Adjust dose as needed Urinary retention: renal US essentially WNL Continue Epps, Flomax, follow-up urology outpatient Leukocytosis: Mild, fluctuating between 8 and 10 Do not suspect underlying infection, hold off on antibiotics Incentive spirometer to bedside, up to chair possible DVT ppx:Lovenox Code:Full Dispo: stable for d/c, SNF pending insurance auth Subjective Date/time seen: 01/13/23 13:25 Interval history: No overnight events noted. No chest pain or shortness of breath. No nausea, vomiting or diarrhea. No fevers or chills. Patient is hoping to go home with home healthcare. Review of Systems Review of Systems: 12 point review of systems was assessed and was negative except as noted in the HPI Exam Narrative: General: No acute distress, alert and oriented per baseline HEENT: Atraumatic, normocephalic, mucous membranes moist CV: Regular rate and rhythm, S1, S2 Lungs: Clear to auscultation bilaterally, no rales or crackles noted, no wheezes, good air entry Abdomen: Soft, nontender, nondistended Extremities: Normal to inspection Skin: No rashes noted, no lesions or wounds seen Objective Data Vital Signs Vital Signs: Vital Signs - 24 hr 01/12/23 14:00 01/12/23 22:00 01/13/23 06:00 Temperature 97.4 F L 97.7 F 97.7 F Pulse Rate 67 64 64 Respiratory Rate 18 20 18 Blood Pressure 125/76 119/71 117/78 Pulse Oximetry 96 96 96 Oxygen Delivery 01/13/23 08:31 01/13/23 08:40 Temperature Pulse Rate 68 Respiratory Rate Blood Pressure Pulse Oximetry Oxygen Delivery Room Air Intake/Output Intake/Output: Intake & Output 01/10/23 01/11/23 01/12/23 01/14/23 23:59 23:59 23:59 00:59 Intake Total 9115 954 6292 320 Output Total 1725 1750 1550 500 [facility] -660 -1220 -110 -180 Meds/Results Medications: Active Medications Generic Name Dose Route Start Last Admin Trade Name Freq PRN Reason Stop Dose Admin Amlodipine Besylate 5 mg 01/06/23 09:00 01/13/23 08:30 Amlodipine Besylate 5 Mg Tablet PO 5 mg DAILY CHINO Administration Atenolol 50 mg 01/06/23 09:00 01/13/23 08:31 Atenolol 50 Mg Tablet PO 50 mg DAILY CHINO Administration Atorvastatin Calcium 10 mg 01/06/23 09:00 01/13/23 08:30
[2023-01-13 15:17] VITALS: BP 119/74; PULSE 67; RESP 18; TEMP 37.2; O2SAT 97
[2023-01-13 17:05] LABS: Glucose Point of Care 327 mg/dl (65-105)
[2023-01-13 20:26] VITALS: BP 129/74; PULSE 68; RESP 18; TEMP 36.2; O2SAT 93
[2023-01-13 20:37] LABS: Glucose Point of Care 241 mg/dl (65-105)
[2023-01-14 05:04] VITALS: BP 139/86; PULSE 67; RESP 20; TEMP 36; O2SAT 95
[2023-01-14] MEDS: SUCRALFATE 1 GM TABLET PO ×3 (06:20→16:39)
[2023-01-14] MEDS: PANTOPRAZOLE 40 MG TABLET PO ×2 (06:20→16:39)
[2023-01-14 07:23] LABS: Basophils Absolute Auto 0.1 K/mm3 (0.0-0.1); Basophils Percent Auto 0.7 % (0.2-1.2); Eosinophils Absolute Auto 0.2 K/mm3 (0-0.3); Eosinophils Percent Auto 2.9 % (0-4.4); Hematocrit 40.7 % (42.0-52.0); Hemoglobin 12.8 g/dL (14.0-18.0); Immature Granulocyte Absolute 0.05 K/mm3 (0.00-0.031); Immature Granulocyte Percent A 0.7 % (0-0.5); Lymphocytes Percent Auto 22.6 % (18.3-44.2); Mean Corpuscular HGB Conc 31.4 g/dl (32-36); Mean Corpuscular Hemoglobin 30.4 pg (26-34); Mean Corpuscular Volume 96.7 fl (80-100); Mean Platelet Volume 11.2 fl (7.4-10.4); Monocytes Absolute Auto 0.9 K/mm3 (0.1-0.6); Monocytes Percent Auto 11.6 % (2.6-8.5); Neutrophils Absolute Auto 4.6 K/mm3 (1.3-6.7); Neutrophils Percent Auto 61.5 % (45.5-73.1); Platelet Count Result 351 k/mm3 (150-375); Red Blood Count 4.21 M/mm3 (4.6-6.20); Red Cell Distribution Width 16.1 % (11.5-14.5); White Blood Count 7.5 K/mm3 (4.5-10.0)
[2023-01-14 07:31] LABS: Alanine Aminotransferase 22 U/L (6-50); Albumin Level 3.6 g/dL (3.5-5.1); Alkaline Phosphatase 113 U/L (38-126); Anion Gap 6 mmol/L (8-16); Aspartate Amino Transferase 22 U/L (17-59); Bilirubin,Total 0.5 mg/dL (0.2-1.3); Blood Urea Nitrogen 39 mg/dL (9-20); Calcium 9.4 mg/dL (8.4-10.2); Carbon Dioxide 26 mmol/L (22-30); Chloride 102 mmol/L (98-107); Estimated CRCL calculation 64 ml/min; Estimated Glomerular Filt Rate 56; Glucose 230 mg/dL (65-110); Potassium 4.4 mmol/L (3.4-5.0); Sodium 134 mmol/L (137-145)
[2023-01-14 07:44] LABS: Glucose Point of Care 215 mg/dl (65-105)
[2023-01-14 08:00] VITALS: O2SAT 95
[2023-01-14 08:28] VITALS: PULSE 70
[2023-01-14] MEDS: ATORVASTATIN 10 MG TABLET PO (08:28)
[2023-01-14] MEDS: BACLOFEN 10 MG TABLET 20 MG PO ×3 (08:28→16:39)
[2023-01-14] MEDS: atenoloL 50 MG TABLET PO (08:28)
[2023-01-14] MEDS: amLODIPine BESYLATE 5 MG TABLET PO (08:28)
[2023-01-14] MEDS: polyethylene glycoL 3350 17 GM POWD.PACK PO (08:29)
[2023-01-14] MEDS: buPROPion HCL XL (24 HR) 150 MG TABCR 300 MG PO (08:29)
[2023-01-14] MEDS: TAMSULOSIN HCL 0.4 MG CAPSULE PO (08:29)
[2023-01-14] MEDS: SENNA/DOCUSATE SODIUM TABLET 1 TAB PO (08:29)
[2023-01-14] MEDS: EMPAGLIFLOZIN 10 MG TABLET PO (08:29)
[2023-01-14] MEDS: ENOXAPARIN 40 MG/0.4 ML SYRINGE SUB-Q (08:29)
[2023-01-14] MEDS: INSULIN ASPART (*BKC) 100 UNITS/ML SUB-Q ×3 (08:32→16:41)
[2023-01-14] MEDS: INSULIN GLARGINE (*BKC) 100 UNITS/ML 12 UNITS SUB-Q ×2 (08:32→23:11)
[2023-01-14 11:38] LABS: Glucose Point of Care 278 mg/dl (65-105)
[2023-01-14 14:00] VITALS: BP 127/74; PULSE 73; RESP 14; TEMP 35.9; O2SAT 97
[2023-01-14] MEDS: traMADol HCL (*CRX) 50 MG TABLET PO (15:50)
--- NOTE | 2023-01-14 16:14 | PM.IMPN ---
Progress Note: A&P Assessment and Plan (1) Type 2 diabetes mellitus with hyperglycemia: Qualifiers: Diabetes mellitus local intermodal truck driver insulin use: with local intermodal truck driver use Qualified Code(s): E11.65 - Type 2 diabetes mellitus with hyperglycemia; Z79.4 - residential (current) use of insulin Code(s): E11.65 - Type 2 diabetes mellitus with hyperglycemia Status: Acute (2) Altered mental status: Qualifiers: Altered mental status type: unspecified Qualified Code(s): R41.82 - Altered mental status, unspecified Code(s): R41.82 - Altered mental status, unspecified Status: Acute (3) Acute kidney injury: Code(s): N17.9 - Acute kidney failure, unspecified Status: Acute (4) Urinary retention: Code(s): R33.9 - Retention of urine, unspecified Status: Acute Plan 62-year-old male with past medical history multiple sclerosis/Wheelchair-bound, chronic kidney disease stage 3, morbid obesity, essential hypertension, type 2 diabetes mellitus and recurrent urinary tract infections who presented to the ER via EMS from home due to altered mental status. Acute Encephalopathy: Resolved multifactorial, recurrent, likely MS flares? CT head unremarkable MRI brain unremarkable Follows up with Dr Dolan in [facility] for possible MS obtain records from Dr Dolan's office along with last MRI Neurology consult recommends cont current treatment, d/c and f/u outpatient with [facility]Bap ELVA on Pre existing CKD stage 3B Renal USG unremarkable Kidney function has improved, c/w epps C/w flomax Stable, creatinine 1.5 3/12 Right Hip pain: No fracture Pt/OT Diabetes mellitus: BG check TID AC and HS c/w lantus+SS Adjust dose as needed Urinary retention: renal US essentially WNL Continue Epps, Flomax, follow-up urology outpatient Leukocytosis: Mild, fluctuating between 8 and 10 Do not suspect underlying infection, hold off on antibiotics Incentive spirometer to bedside, up to chair possible DVT ppx:Lovenox Code:Full Dispo: stable for d/c, SNF pending insurance auth Subjective Date/time seen: 01/14/23 16:14 Interval history: No overnight events noted. No chest pain or shortness of breath. No nausea, vomiting or diarrhea. No fevers or chills. Patient is hoping to go home with home healthcare. Exam Narrative: General: No acute distress, alert and oriented per baseline HEENT: Atraumatic, normocephalic, mucous membranes moist CV: Regular rate and rhythm, S1, S2 Lungs: Clear to auscultation bilaterally, no rales or crackles noted, no wheezes, good air entry Abdomen: Soft, nontender, nondistended Extremities: Normal to inspection Skin: No rashes noted, no lesions or wounds seen Objective Data Vital Signs Vital Signs: Vital Signs - 24 hr 01/13/23 20:26 01/14/23 05:04 01/14/23 08:00 Temperature 97.1 F L 96.8 F L Pulse Rate 68 67 Respiratory Rate 18 20 Blood Pressure 129/74 139/86 Pulse Oximetry 93 95 95 Oxygen Delivery Room Air 01/14/23 08:28 01/14/23 14:00 Temperature 96.6 F L Pulse Rate 70 73 Respiratory Rate 14 Blood Pressure 127/74 Pulse Oximetry 97 Oxygen Delivery Intake/Output Intake/Output: Intake & Output 01/11/23 01/12/23 01/13/23 01/14/23 22:59 22:59 23:59 23:59 Intake Total 460 Output Total 1625 Balance -1165 Meds/Results Medications: Active Medications Generic Name Dose Route Start Last Admin Trade Name Freq PRN Reason Stop Dose Admin Amlodipine Besylate 5 mg 01/06/23 09:00 01/14/23 08:28 Amlodipine Besylate 5 Mg Tablet PO 5 mg DAILY CHINO Administration Atenolol 50 mg 01/06/23 09:00 01/14/23 08:28 Atenolol 50 Mg Tablet PO 50 mg DAILY CHINO Administration Atorvastatin Calcium 10 mg 01/06/23 09:00 01/14/23 08:28 Atorvastatin 10 Mg Tablet PO 10 mg DAILY CHINO Administration Baclofen 20 mg 01/06/23 09:00 01/14/23 13:56 Baclofen 10 Mg Tablet PO 20 mg
[2023-01-14 16:37] LABS: Glucose Point of Care 289 mg/dl (65-105)
[2023-01-14 22:00] VITALS: BP 100/41; PULSE 80; RESP 14; TEMP 36.3; O2SAT 97
[2023-01-14 23:11] LABS: Glucose Point of Care 311 mg/dl (65-105)
[2023-01-14] MEDS: TIZANIDINE HCL 4 MG TABLET PO (23:12)
[2023-01-15 06:00] VITALS: BP 124/67; PULSE 79; RESP 14; TEMP 36.6; O2SAT 94
[2023-01-15 06:44] LABS: Basophils Absolute Auto 0.1 K/mm3 (0.0-0.1); Basophils Percent Auto 0.8 % (0.2-1.2); Eosinophils Absolute Auto 0.1 K/mm3 (0-0.3); Eosinophils Percent Auto 1.1 % (0-4.4); Hematocrit 39.1 % (42.0-52.0); Hemoglobin 12.5 g/dL (14.0-18.0); Immature Granulocyte Absolute 0.06 K/mm3 (0.00-0.031); Immature Granulocyte Percent A 0.8 % (0-0.5); Lymphocytes Absolute Auto 1.39 K/mm3 (0.9-3.2); Lymphocytes Percent Auto 18.5 % (18.3-44.2); Mean Corpuscular Hemoglobin 30.1 pg (26-34); Mean Corpuscular Volume 94.2 fl (80-100); Mean Platelet Volume 11.2 fl (7.4-10.4); Monocytes Absolute Auto 0.8 K/mm3 (0.1-0.6); Monocytes Percent Auto 10.8 % (2.6-8.5); Neutrophils Absolute Auto 5.1 K/mm3 (1.3-6.7); Platelet Count Result 378 k/mm3 (150-375); Red Blood Count 4.15 M/mm3 (4.6-6.20); Red Cell Distribution Width 16.2 % (11.5-14.5); White Blood Count 7.5 K/mm3 (4.5-10.0)
[2023-01-15 07:02] LABS: Alanine Aminotransferase 22 U/L (6-50); Albumin Level 3.7 g/dL (3.5-5.1); Alkaline Phosphatase 117 U/L (38-126); Anion Gap 10 mmol/L (8-16); Aspartate Amino Transferase 23 U/L (17-59); Bilirubin,Total 0.6 mg/dL (0.2-1.3); Blood Urea Nitrogen 45 mg/dL (9-20); Calcium 9.6 mg/dL (8.4-10.2); Carbon Dioxide 20 mmol/L (22-30); Chloride 101 mmol/L (98-107); Estimated CRCL calculation 60 ml/min; Estimated Glomerular Filt Rate 52; Glucose 238 mg/dL (65-110); Potassium 4.4 mmol/L (3.4-5.0); Sodium 131 mmol/L (137-145)
[2023-01-15 07:58] VITALS: PULSE 72
[2023-01-15] MEDS: atenoloL 50 MG TABLET PO (07:58)
[2023-01-15] MEDS: PANTOPRAZOLE 40 MG TABLET PO (07:58)
[2023-01-15] MEDS: amLODIPine BESYLATE 5 MG TABLET PO (07:58)
[2023-01-15] MEDS: SUCRALFATE 1 GM TABLET PO ×2 (07:58→11:31)
[2023-01-15] MEDS: ATORVASTATIN 10 MG TABLET PO (07:59)
[2023-01-15] MEDS: BACLOFEN 10 MG TABLET 20 MG PO ×2 (07:59→12:16)
[2023-01-15] MEDS: buPROPion HCL XL (24 HR) 150 MG TABCR 300 MG PO (07:59)
[2023-01-15] MEDS: EMPAGLIFLOZIN 10 MG TABLET PO (08:00)
[2023-01-15] MEDS: TAMSULOSIN HCL 0.4 MG CAPSULE PO (08:00)
[2023-01-15] MEDS: polyethylene glycoL 3350 17 GM POWD.PACK PO (08:00)
[2023-01-15] MEDS: ENOXAPARIN 40 MG/0.4 ML SYRINGE SUB-Q (08:00)
[2023-01-15] MEDS: SENNA/DOCUSATE SODIUM TABLET 1 TAB PO (08:01)
[2023-01-15] MEDS: INSULIN ASPART (*BKC) 100 UNITS/ML SUB-Q ×2 (08:09→12:14)
[2023-01-15] MEDS: INSULIN GLARGINE (*BKC) 100 UNITS/ML 12 UNITS SUB-Q (08:09)
[2023-01-15 08:11] LABS: Glucose Point of Care 230 mg/dl (65-105)
--- NOTE | 2023-01-15 09:24 | PC.NURSE ---
Dr Peña notified that patient is more confused and paranoid and yelling out.
[2023-01-15] MEDS: SODIUM CHLORIDE 0.9% IV 1,000 ML 500 ML IV CONT (11:45)
[2023-01-15 12:04] LABS: Glucose Point of Care 275 mg/dl (65-105)
--- NOTE | 2023-01-15 13:55 | PCNFU ---
Nutrition Follow-Up Complete: Severe malnutrition related to inadequate protein-energy intake in the setting of chronic disease as evidenced by minimal oral intake for greater than 1 month, significant weight loss of -15% in 1 month. Goal:PO intake 50% or greater of meals and supplements Pt current nutrition is Diabetic consistent carb. Nutrition recommendation: Continue with current plan of care. Last recorded weight is 112.7 kg. Bowel Motility: +BM 01/12 Labs Reviewed: Hgb:12.5, HCT:39.1, Na:131, BUN:45, Cr:1.4, Glu:275 Meds Noted:lovenox, novolog/lantus, protonix, miralax Skin: maceration to buttocks Additional Notes: Pt continues on a diabetic diet, intake ranges 50-100% of meals. Pt on Ensure compact and nutrition ice cream BID. Pt needs feeding assistanct. Agree with diet orders Monitor intake, tolerance, wt, labs. Follow up in 5 days.
[2023-01-15 14:00] VITALS: BP 113/75; PULSE 69; RESP 18; TEMP 36; O2SAT 96
[2023-01-15] MEDS: traMADol HCL (*CRX) 50 MG TABLET PO (14:42)
[2023-01-15] MEDS: CYCLOBENZAPRINE HCL 5 MG TABLET PO (14:42)
[2023-01-15 15:35] LABS: Anion Gap 6 mmol/L (8-16); Blood Urea Nitrogen 43 mg/dL (9-20); Carbon Dioxide 22 mmol/L (22-30); Chloride 101 mmol/L (98-107); Estimated CRCL calculation 50 ml/min; Estimated Glomerular Filt Rate 41; Glucose 258 mg/dL (65-110); Potassium 4.2 mmol/L (3.4-5.0); Sodium 129 mmol/L (137-145)
[2023-01-15 16:45] LABS: EDCOVIDSCREEN Negative (Negative)
== END 2023-01-15 17:55 | DRG 637 ==
LOC: ANHED 19:08 → ANH3MEDSUR 01-06 00:46
PROVIDERS: Hospitalist; Internal Medicine; Admitting Provider Internal Medicine; Emergency Provider Physician Assistant; PCP Internal Medicine; Visit Provider Student in an Organized Health Care Education/Training Program
DX: E11.65 Type 2 diabetes mellitus with hyperglycemia (principal); E43 Unspecified severe protein-calorie malnutrition; G93.49 Other encephalopathy; N17.9 Acute kidney failure, unspecified; E11.22 Type 2 diabetes mellitus with diabetic chronic kidney disease; N18.32 Chronic kidney disease, stage 3b; R33.9 Retention of urine, unspecified; G35 Multiple sclerosis; Z20.822 Contact with and (suspected) exposure to COVID-19; Z99.3 Dependence on wheelchair; Z68.38 Body mass index [BMI] 38.0-38.9, adult
CPT/HCPCS: 36415; 36600; 70450; 70551; 71045; 76770; 80048; 80053; 81001; 82140; 82375; 82805; 82948; 83050; 83605; 85025; 85027; 87040; 87426; 87636; 92610; 92611; 93005; 94660; 96361; 96365; 96372; 96374; 96375; 96376; 97110; 97161; 97165; 97530; 97535; 99285; A9270; C9803; G0378; J0131; J1170; J1650; J1815; J3360; J7030